=== PATIENT | female | born 1950 | race Caucasian/White ===

== ENCOUNTER 2020-02-08 23:55 | Inpatient (IN) | payer OTHER, MEDICAID ==
[~2020-02-08] VITALS: Ht 162.6 cm; Wt 82.3 kg
[2020-02-08 23:55] VITALS: BP 86/43
[2020-02-09] VITALS (13 sets, daily range): BP systolic 81–113; BP diastolic 47–75
[2020-02-09 00:12] LABS: BASO % 0.2 % (0.0-1.0); EOS # 0.3 10*3/uL (0.0-0.4); EOS % 3.2 % (1.0-4.0); HEMATOCRIT 28.8 % (37.0-47.0); LYMPH # 0.7 10*3/uL (1.3-4.4); LYMPH % 8.6 % (27.0-41.0); MEAN CELL VOLUME 102.1 fl (81.0-99.0); MEAN CORPUSCULAR HGB CONC 32.3 g/dl (33.0-37.0); MEAN PLATELET VOLUME 11.1 fl (9.6-12.3); MONO # 0.8 10*3/uL (0.1-1.0); MONO % 9.8 % (3.0-9.0); NEUT # 6.5 10*3/uL (2.3-7.9); NEUT % 77.7 % (47.0-73.0); PLATELET COUNT AUTOMATED 219 10*3/uL (130-400); RED BLOOD COUNT 2.82 10*6/uL (4.10-5.10); RED CELL DISTRI WIDTH 15.4 % (0-14.5); WHITE BLOOD COUNT 8.4 10*3/uL (4.8-10.8)
[2020-02-09 00:22] LABS: ACT PARTIAL THROMBO TIME 29.1 SECONDS (20.0-32.1); INTERNATIONAL NORM RATIO 1.1 (2.0-3.5)
[2020-02-09 00:30] LABS: ALBUMIN 3.3 gm/dl (3.1-4.5); ALKALINE PHOSPHATASE 169 U/L (45-117); BUN 66 mg/dl (7-24); CHLORIDE 89 mmol/L (98-107); CREATININE 1.38 mg/dL (0.55-1.02); POTASSIUM 3.9 mmol/L (3.5-5.1); SGOT/AST 44 IU/L (3-35); SGPT/ALT 70 U/L (12-78); SODIUM 130 mmol/L (136-145); TOTAL PROTEIN 8.6 gm/dL (6.4-8.2)
[2020-02-09 00:31] LABS: TROPONIN I < 0.015 ng/ml (<0.045)
[2020-02-09 00:59] LABS: THYROXINE (T4) TOTAL 2.2 ug/dl (4.8-13.9)
[2020-02-09] MEDS ORDERED: ATIVAN1 MG PEG (04:46)
[2020-02-09] MEDS ORDERED: TYLOPHEN500 M2 PO (04:46)
[2020-02-09] MEDS ORDERED: DULCOLAX10 M1 R (04:48)
[2020-02-09] MEDS ORDERED: PERIDEX118 ML MM (04:49)
[2020-02-09] MEDS ORDERED: SILACE50 MG/5 ML PEG (04:50)
[2020-02-09] MEDS ORDERED: ELIQUIS5 M1 PEG (04:51)
[2020-02-09] MEDS ORDERED: EUCERIN ECZEMA226 GM T (04:53)
[2020-02-09] MEDS ORDERED: MYLICON, MYLANT80 MG PEG (04:55)
[2020-02-09] MEDS ORDERED: NITROSTAT0.4 MG SL (04:57)
[2020-02-09] MEDS ORDERED: OMEPRAZOLE40 MG PEG (04:58)
[2020-02-09] MEDS ORDERED: OXYCODONE H5 MG/5 ML PEG (04:59)
[2020-02-09] MEDS ORDERED: PLAVIX75 M1 PEG (05:01)
[2020-02-09] MEDS ORDERED: BUDESONIDE1 MG/2 ML ENT (05:04)
[2020-02-09] MEDS ORDERED: ROBITUSSIN DM 101 OZ PO (05:05)
[2020-02-09] MEDS ORDERED: SENNA-S TABLET1 EACH PO (05:06)
[2020-02-09] MEDS ORDERED: REVATIO20 MG PO (05:07)
[2020-02-09] MEDS ORDERED: Synthroid,Levo50 MCG PEG (05:08)
[2020-02-09] MEDS ORDERED: TRAZODONE100 MG PEG (05:09)
[2020-02-09] MEDS ORDERED: ZOFRAN4 MG PEG (05:10)
[2020-02-09] MEDS ORDERED: FLEET ENEMA 13133 ML R (05:11)
[2020-02-09] MEDS ORDERED: Ipratropium Brom3 ML INH (05:12)
[2020-02-09] MEDS ORDERED: LASIX40 MG PEG (05:13)
[2020-02-09] MEDS ORDERED: LOPRESSOR100 M1 PEG (05:14)
[2020-02-09] MEDS ORDERED: MILK OF MA2400 MG/10 PEG (05:15)
[2020-02-09] MEDS ORDERED: MIRALAX17 GM PO (05:16)
[2020-02-09] MEDS ORDERED: PHENYTOIN PEG (05:19)
[2020-02-09 05:50] LABS: CREATININE 1.39 mg/dL (0.55-1.02); FREE T4 0.38 ng/dl (0.76-1.46)
[2020-02-09 06:02] LABS: BASO % 0.3 % (0.0-1.0); EOS # 0.2 10*3/uL (0.0-0.4); EOS % 2.8 % (1.0-4.0); HEMATOCRIT 29.6 % (37.0-47.0); LYMPH # 0.5 10*3/uL (1.3-4.4); LYMPH % 6.9 % (27.0-41.0); MEAN CORPUSCULAR HGB 32.4 pg (27.0-31.0); MEAN CORPUSCULAR HGB CONC 32.1 g/dl (33.0-37.0); MEAN PLATELET VOLUME 11.6 fl (9.6-12.3); MONO # 0.9 10*3/uL (0.1-1.0); MONO % 10.9 % (3.0-9.0); NEUT # 6.2 10*3/uL (2.3-7.9); NEUT % 78.7 % (47.0-73.0); PLATELET COUNT AUTOMATED 223 10*3/uL (130-400); RED BLOOD COUNT 2.93 10*6/uL (4.10-5.10); RED CELL DISTRI WIDTH 15.3 % (0-14.5); WHITE BLOOD COUNT 7.8 10*3/uL (4.8-10.8)
[2020-02-09 06:19] LABS: PHENYTOIN (DILANTIN) 35.1 ug/ml (10-20)
[2020-02-09 06:37] LABS: VITAMIN D, 25-HYDROXY 19.5 ng/mL (30-100)
[2020-02-09 07:49] LABS: ABG BASE EXCESS 8.8 mmol/L (-2.0-2.0); ARTERIAL BLOOD GAS PH 7.463 (7.35-7.45)
[2020-02-09 17:07] LABS: ABG BASE EXCESS 9.9 mmol/L (-2.0-2.0); ARTERIAL BLOOD GAS PH 7.462 (7.35-7.45)
[2020-02-10] VITALS: BP 98/71
[2020-02-10 04:00] VITALS: BP 112/50
[2020-02-10 05:12] LABS: ALBUMIN 3.4 gm/dl (3.1-4.5); CREATININE 1.25 mg/dL (0.55-1.02); POTASSIUM 3.9 mmol/L (3.5-5.1); TOTAL PROTEIN 8.6 gm/dL (6.4-8.2)
[2020-02-10 06:05] LABS: BASO % 0.1 % (0.0-1.0); EOS # 0.2 10*3/uL (0.0-0.4); EOS % 2.5 % (1.0-4.0); HEMATOCRIT 28.5 % (37.0-47.0); LYMPH # 0.6 10*3/uL (1.3-4.4); LYMPH % 6.7 % (27.0-41.0); MEAN CELL VOLUME 100.7 fl (81.0-99.0); MEAN CORPUSCULAR HGB 33.6 pg (27.0-31.0); MEAN CORPUSCULAR HGB CONC 33.3 g/dl (33.0-37.0); MONO # 0.8 10*3/uL (0.1-1.0); NEUT # 6.8 10*3/uL (2.3-7.9); NEUT % 81.3 % (47.0-73.0); PLATELET COUNT AUTOMATED 240 10*3/uL (130-400); RED BLOOD COUNT 2.83 10*6/uL (4.10-5.10); RED CELL DISTRI WIDTH 15.3 % (0-14.5); WHITE BLOOD COUNT 8.4 10*3/uL (4.8-10.8)
[2020-02-10 07:34] LABS: ARTERIAL BLOOD GAS PH 7.446 (7.35-7.45)
[2020-02-10 08:00] VITALS: BP 102/60
[2020-02-10 12:00] VITALS: BP 92/60
[2020-02-10 16:00] VITALS: BP 100/66
[2020-02-10 20:00] VITALS: BP 104/74
[2020-02-11] VITALS: BP 102/68
[2020-02-11 04:00] VITALS: BP 96/62
[2020-02-11 06:25] LABS: BASO % 0.3 % (0.0-1.0); EOS # 0.2 10*3/uL (0.0-0.4); HEMATOCRIT 32.6 % (37.0-47.0); LYMPH # 0.7 10*3/uL (1.3-4.4); LYMPH % 10.9 % (27.0-41.0); MEAN CELL VOLUME 100.3 fl (81.0-99.0); MEAN CORPUSCULAR HGB 32.6 pg (27.0-31.0); MEAN CORPUSCULAR HGB CONC 32.5 g/dl (33.0-37.0); MONO # 0.4 10*3/uL (0.1-1.0); MONO % 6.9 % (3.0-9.0); NEUT # 4.9 10*3/uL (2.3-7.9); NEUT % 78.4 % (47.0-73.0); PLATELET COUNT AUTOMATED 256 10*3/uL (130-400); RED BLOOD COUNT 3.25 10*6/uL (4.10-5.10); RED CELL DISTRI WIDTH 15.5 % (0-14.5); WHITE BLOOD COUNT 6.2 10*3/uL (4.8-10.8)
[2020-02-11 06:33] LABS: CREATININE 1.28 mg/dL (0.55-1.02)
[2020-02-11 06:48] LABS: PHENYTOIN (DILANTIN) 24.9 ug/ml (10-20)
[2020-02-11 08:00] VITALS: BP 108/72
[2020-02-11 12:00] VITALS: BP 96/65
[2020-02-11 16:00] VITALS: BP 91/57
[2020-02-11 20:00] VITALS: BP 100/55
[2020-02-12] VITALS: BP 109/52
[2020-02-12 04:00] VITALS: BP 106/72
[2020-02-12 06:14] LABS: BASO % 0.2 % (0.0-1.0); EOS # 0.2 10*3/uL (0.0-0.4); EOS % 2.2 % (1.0-4.0); LYMPH # 0.6 10*3/uL (1.3-4.4); MEAN CORPUSCULAR HGB 33.5 pg (27.0-31.0); MEAN CORPUSCULAR HGB CONC 32.1 g/dl (33.0-37.0); MEAN PLATELET VOLUME 11.4 fl (9.6-12.3); MONO # 0.8 10*3/uL (0.1-1.0); MONO % 9.1 % (3.0-9.0); NEUT # 6.8 10*3/uL (2.3-7.9); NEUT % 81.1 % (47.0-73.0); PLATELET COUNT AUTOMATED 252 10*3/uL (130-400); RED BLOOD COUNT 2.69 10*6/uL (4.10-5.10); WHITE BLOOD COUNT 8.3 10*3/uL (4.8-10.8)
[2020-02-12 06:21] LABS: MEAN CELL VOLUME 104.1 fl (81.0-99.0)
[2020-02-12 06:28] LABS: ALBUMIN 3.1 gm/dl (3.1-4.5)
[2020-02-12 06:35] LABS: CREATININE 1.33 mg/dL (0.55-1.02); PHENYTOIN (DILANTIN) 12.7 ug/ml (10-20); TOTAL PROTEIN 8.1 gm/dL (6.4-8.2)
[2020-02-12 06:36] LABS: POTASSIUM 4.3 mmol/L (3.5-5.1)
[2020-02-12 08:00] VITALS: BP 107/39
[2020-02-12 12:00] VITALS: BP 95/68
[2020-02-12 15:49] LABS: ABG BASE EXCESS 6.5 mmol/L (-2.0-2.0); ARTERIAL BLOOD GAS PH 7.468 (7.35-7.45)
[2020-02-12 16:00] VITALS: BP 104/76
[2020-02-12 19:08] LABS: ABG BASE EXCESS 5.3 mmol/L (-2.0-2.0); ARTERIAL BLOOD GAS PH 7.401 (7.35-7.45)
[2020-02-12 20:00] VITALS: BP 107/68
[2020-02-13] VITALS (8 sets, daily range): BP systolic 101–116; BP diastolic 47–73
[2020-02-13 06:04] LABS: BASO % 0.1 % (0.0-1.0); EOS # 0.2 10*3/uL (0.0-0.4); EOS % 1.2 % (1.0-4.0); HEMATOCRIT 28.4 % (37.0-47.0); LYMPH # 0.5 10*3/uL (1.3-4.4); LYMPH % 3.3 % (27.0-41.0); MEAN CELL VOLUME 103.3 fl (81.0-99.0); MEAN CORPUSCULAR HGB 33.1 pg (27.0-31.0); MEAN PLATELET VOLUME 10.9 fl (9.6-12.3); NEUT # 12.1 10*3/uL (2.3-7.9); PLATELET COUNT AUTOMATED 242 10*3/uL (130-400); RED BLOOD COUNT 2.75 10*6/uL (4.10-5.10); RED CELL DISTRI WIDTH 15.6 % (0-14.5); WHITE BLOOD COUNT 13.7 10*3/uL (4.8-10.8)
[2020-02-13 06:11] LABS: ALBUMIN 3.2 gm/dl (3.1-4.5); CREATININE 1.2 mg/dL (0.55-1.02); POTASSIUM 3.8 mmol/L (3.5-5.1); TOTAL PROTEIN 8.2 gm/dL (6.4-8.2)
[2020-02-13 13:10] LABS: ACID FAST SPEC PROCESSING Concentration (.)
[2020-02-14] VITALS (10 sets, daily range): BP systolic 108–120; BP diastolic 65–77
[2020-02-14 06:29] LABS: BASO % 0.4 % (0.0-1.0); EOS # 0.2 10*3/uL (0.0-0.4); EOS % 2.2 % (1.0-4.0); LYMPH # 0.6 10*3/uL (1.3-4.4); LYMPH % 5.7 % (27.0-41.0); MEAN CELL VOLUME 104.5 fl (81.0-99.0); MEAN CORPUSCULAR HGB 32.4 pg (27.0-31.0); MEAN PLATELET VOLUME 10.9 fl (9.6-12.3); MONO # 0.6 10*3/uL (0.1-1.0); MONO % 6.1 % (3.0-9.0); NEUT # 8.4 10*3/uL (2.3-7.9); NEUT % 85.1 % (47.0-73.0); PLATELET COUNT AUTOMATED 274 10*3/uL (130-400); RED BLOOD COUNT 2.87 10*6/uL (4.10-5.10); RED CELL DISTRI WIDTH 15.9 % (0-14.5); WHITE BLOOD COUNT 9.9 10*3/uL (4.8-10.8)
[2020-02-14 06:55] LABS: ALBUMIN 3.3 gm/dl (3.1-4.5); CREATININE 1.16 mg/dL (0.55-1.02); POTASSIUM 3.7 mmol/L (3.5-5.1); TOTAL PROTEIN 8.3 gm/dL (6.4-8.2)
[2020-02-15] VITALS: BP 109/62
[2020-02-15 04:00] VITALS: BP 106/64
[2020-02-15 08:00] VITALS: BP 124/92
[2020-02-15 12:00] VITALS: BP 113/84
[2020-02-15 16:00] VITALS: BP 113/78
[2020-02-15 20:00] VITALS: BP 117/70
[2020-02-16] VITALS: BP 104/53
[2020-02-16 04:00] VITALS: BP 110/72
[2020-02-16 06:23] LABS: PHENYTOIN (DILANTIN) 2.9 ug/ml (10-20)
[2020-02-16 06:34] LABS: THYROID STIM HORMONE (HS) 99.8 uIU/ml (0.358-4.75)
[2020-02-16 08:00] VITALS: BP 111/70
[2020-02-16 12:00] VITALS: BP 126/72
[2020-02-16] MEDS ORDERED: QUETIAPINE FUMA25 MG PO ×2 (13:32)
[2020-02-16] MEDS ORDERED: SYNTHROID,LEV125 MCG PO (13:32)
[2020-02-16] MEDS ORDERED: Lanoxin PEG (13:32)
[2020-02-16] MEDS ORDERED: LEVAQUIN750 M1 PO (13:50)
[2020-02-16 16:00] VITALS: BP 120/60
== END 2020-02-16 17:18 | DRG 870 ==
LOC: ED 23:55 → ICCU 02-09 01:17 → EDHOLD 02-09 01:17 → 4E 02-09 02:18 → ICCU 02-09 04:07
PROVIDERS: Emergency Medicine; Internal Medicine; Internal Medicine Critical Care Medicine; ADMIT Family Medicine
PROC: 5A1955Z Respiratory Ventilation, Greater than 96 Consecutive Hours (ICD-10-PCS; 2020-02-09)
PROC: 05HC33Z Insertion of Infusion Device into Left Basilic Vein, Percutaneous Approach (ICD-10-PCS; 2020-02-09)
PROC: 0BC68ZZ Extirpation of Matter from Right Lower Lobe Bronchus, Via Natural or Artificial Opening Endoscopic (ICD-10-PCS; principal; 2020-02-12)
PROC: 0BC18ZZ Extirpation of Matter from Trachea, Via Natural or Artificial Opening Endoscopic (ICD-10-PCS; principal; 2020-02-12)
PROC: 0BC88ZZ Extirpation of Matter from Left Upper Lobe Bronchus, Via Natural or Artificial Opening Endoscopic (ICD-10-PCS; principal; 2020-02-12)
PROC: 0BC48ZZ Extirpation of Matter from Right Upper Lobe Bronchus, Via Natural or Artificial Opening Endoscopic (ICD-10-PCS; principal; 2020-02-12)
PROC: 0BC58ZZ Extirpation of Matter from Right Middle Lobe Bronchus, Via Natural or Artificial Opening Endoscopic (ICD-10-PCS; principal; 2020-02-12)
PROC: 0BC38ZZ Extirpation of Matter from Right Main Bronchus, Via Natural or Artificial Opening Endoscopic (ICD-10-PCS; principal; 2020-02-12)
PROC: 0BC98ZZ Extirpation of Matter from Lingula Bronchus, Via Natural or Artificial Opening Endoscopic (ICD-10-PCS; principal; 2020-02-12)
PROC: 0BC78ZZ Extirpation of Matter from Left Main Bronchus, Via Natural or Artificial Opening Endoscopic (ICD-10-PCS; principal; 2020-02-12)
PROC: 0BCB8ZZ Extirpation of Matter from Left Lower Lobe Bronchus, Via Natural or Artificial Opening Endoscopic (ICD-10-PCS; principal; 2020-02-12)
DX: A41.9 Sepsis, unspecified organism (principal); J96.22 Acute and chronic respiratory failure with hypercapnia; J96.21 Acute and chronic respiratory failure with hypoxia; J15.1 Pneumonia due to Pseudomonas; E87.1 Hypo-osmolality and hyponatremia; I13.0 Hypertensive heart and chronic kidney disease with heart failure and stage 1 through stage 4 chronic kidney disease, or unspecified chronic kidney disease; I48.92 Unspecified atrial flutter; J44.0 Chronic obstructive pulmonary disease with (acute) lower respiratory infection; E44.1 Mild protein-calorie malnutrition; Z99.11 Dependence on respirator [ventilator] status; I42.0 Dilated cardiomyopathy; I50.42 Chronic combined systolic (congestive) and diastolic (congestive) heart failure; E03.9 Hypothyroidism, unspecified; R94.31 Abnormal electrocardiogram [ECG] [EKG]; D53.9 Nutritional anemia, unspecified; E87.8 Other disorders of electrolyte and fluid balance, not elsewhere classified; E83.41 Hypermagnesemia; R74.0 Nonspecific elevation of levels of transaminase and lactic acid dehydrogenase [LDH]; R74.8 Abnormal levels of other serum enzymes; R79.89 Other specified abnormal findings of blood chemistry; E66.9 Obesity, unspecified; N18.3 Chronic kidney disease, stage 3 (moderate); I25.10 Atherosclerotic heart disease of native coronary artery without angina pectoris; D50.9 Iron deficiency anemia, unspecified; F32.9 Major depressive disorder, single episode, unspecified; G43.709 Chronic migraine without aura, not intractable, without status migrainosus; K21.9 Gastro-esophageal reflux disease without esophagitis; M34.1 CR(E)ST syndrome; F41.1 Generalized anxiety disorder; K59.00 Constipation, unspecified; R13.12 Dysphagia, oropharyngeal phase; M48.00 Spinal stenosis, site unspecified; M34.9 Systemic sclerosis, unspecified; J20.9 Acute bronchitis, unspecified; M79.7 Fibromyalgia; I34.0 Nonrheumatic mitral (valve) insufficiency; R07.89 Other chest pain; Z20.828 Contact with and (suspected) exposure to other viral communicable diseases; I48.0 Paroxysmal atrial fibrillation; Z93.0 Tracheostomy status; Z93.1 Gastrostomy status; Z88.8 Allergy status to other drugs, medicaments and biological substances; Z88.5 Allergy status to narcotic agent; Z86.711 Personal history of pulmonary embolism; Z86.14 Personal history of Methicillin resistant Staphylococcus aureus infection; Z79.899 Other long term (current) drug therapy; Z79.02 Long term (current) use of antithrombotics/antiplatelets; Z79.01 Long term (current) use of anticoagulants; Z68.31 Body mass index [BMI] 31.0-31.9, adult

== ENCOUNTER 2020-03-01 22:31 | Inpatient (IN) | payer OTHER, MEDICAID ==
[~2020-03-01] VITALS: Ht 162.6 cm; Wt 75.4 kg
[~2020-03-01 22:31] MED LIST: ATIVAN1 MG PEG; BUDESONIDE1 MG/2 ML ENT; DULCOLAX10 M1 R; ELIQUIS5 M1 PEG; EUCERIN ECZEMA226 GM T; FLEET ENEMA 13133 ML R; Ipratropium Brom3 ML INH; LASIX40 MG PEG; LEVAQUIN750 M1 PO; LOPRESSOR100 M1 PEG; Lanoxin PEG; MILK OF MA2400 MG/10 PEG; MIRALAX17 GM PO; MYLICON, MYLANT80 MG PEG; NITROSTAT0.4 MG SL; OMEPRAZOLE40 MG PEG; OXYCODONE H5 MG/5 ML PEG; PERIDEX118 ML MM; PHENYTOIN PEG; PLAVIX75 M1 PEG; QUETIAPINE FUMA25 MG PO; REVATIO20 MG PO; ROBITUSSIN DM 101 OZ PO; SENNA-S TABLET1 EACH PO; SILACE50 MG/5 ML PEG; SYNTHROID,LEV125 MCG PO; Synthroid,Levo50 MCG PEG; TRAZODONE100 MG PEG; TYLOPHEN500 M2 PO; ZOFRAN4 MG PEG
--- NOTE | 2020-03-01 22:35 | NUR ---
Pt placed on ventilator at [facility] settings. [id number]%-10+ Pt has a 6.0 Shiley XLT. Suctioning bright red bloody secretions out of her. SpO2 89%-92%. Pressure support of 15.
[2020-03-01 22:36] VITALS: BP 96/53
--- NOTE | 2020-03-01 22:37 | NUR ---
RESP AT BEDSIDE AT THIS TIME HOOKING PATIENT UP TO VENT AT THIS TIME. SPO2 90% AT THIS TIME.
--- NOTE | 2020-03-01 23:10 | NUR ---
MULTIPLE TRIES FOR IV ACCESS, NO SUCCESS. DR HOYOS NOTIFIED OF THIS. DR HOYOS STATES SHE DOES NOT WANT TO START CENTRAL LINE AT THIS TIME DUE TO BLEEDING SO MUCH FROM ACCESS SITES.
[2020-03-01 23:14] VITALS: BP 99/54
[2020-03-01 23:27] LABS: BASO % 0.2 % (0.0-1.0); EOS # 0.1 10*3/uL (0.0-0.4); EOS % 0.7 % (1.0-4.0); HEMATOCRIT 31.9 % (37.0-47.0); LYMPH # 0.3 10*3/uL (1.3-4.4); LYMPH % 2.2 % (27.0-41.0); MEAN CELL VOLUME 100.6 fl (81.0-99.0); MEAN CORPUSCULAR HGB 32.8 pg (27.0-31.0); MEAN CORPUSCULAR HGB CONC 32.6 g/dl (33.0-37.0); MEAN PLATELET VOLUME 11.3 fl (9.6-12.3); MONO # 0.9 10*3/uL (0.1-1.0); NEUT # 11.1 10*3/uL (2.3-7.9); NEUT % 89.4 % (47.0-73.0); PLATELET COUNT AUTOMATED 238 10*3/uL (130-400); RED BLOOD COUNT 3.17 10*6/uL (4.10-5.10); RED CELL DISTRI WIDTH 14.6 % (0-14.5); WHITE BLOOD COUNT 12.4 10*3/uL (4.8-10.8)
[2020-03-01 23:44] LABS: ALBUMIN 3.5 gm/dl (3.1-4.5); ALKALINE PHOSPHATASE 179 U/L (45-117); BUN 41 mg/dl (7-24); CHLORIDE 93 mmol/L (98-107); CREATININE 1.02 mg/dL (0.55-1.02); POTASSIUM 3.9 mmol/L (3.5-5.1); SGOT/AST 54 IU/L (3-35); SGPT/ALT 67 U/L (12-78); SODIUM 131 mmol/L (136-145)
[2020-03-01 23:46] LABS: TROPONIN I < 0.015 ng/ml (<0.045)
[2020-03-01 23:55] VITALS: BP 100/71
[2020-03-02] VITALS (12 sets, daily range): BP systolic 79–140; BP diastolic 44–79
--- NOTE | 2020-03-02 01:19 | NUR ---
RASH NOTED TO THE BUTTOCK BLANCHABLE. NO PHOTO TAKEN.
--- NOTE | 2020-03-02 01:35 | NUR ---
A 70, admitted to ICCU, under the services of ALIS Rascon DO with a diagnosis of RESP FAILURE, HYPOXIA, PNEUMONIA. Chief complaint is SOB. Patient arrived via stretcher from ER. Monitor applied. Initial assessment completed. Vital signs taken and recorded. ALIS RASCON DO notified of admission to the unit. Orders received. See assessment for past medical history, medications and allergies. Patient and/or family oriented to unit. [facility] ICCU visitation policy reviewed. Clothing/patient valuable form completed. ANOOP SERRANO
[2020-03-02 01:53] LABS: ABG BASE EXCESS 5.5 mmol/L (-2.0-2.0); ARTERIAL BLOOD GAS PH 7.374 (7.35-7.45)
--- NOTE | 2020-03-02 03:30 | NUR ---
DR CASTILLO NOTIFIED OF CONSULT AND ABG RESULTS.
--- NOTE | 2020-03-02 03:40 | NUR ---
DR RAMÍREZ NOTIFIED OF CONSULT AND NEW ORDER FOR AMIODARONE BOLUS AND GTT RECEIVED.
--- NOTE | 2020-03-02 04:00 | NUR ---
Pt lavaged and suctioned with ice bathed saline. Suction moderate amount of bright red blood and clots. Tolerated well. Decreased FiO2 from 100% to 80%.
--- NOTE | 2020-03-02 04:00 | NUR ---
Pt switched from decelerating form to square wave form per Dr.Aziz clayton. Peak pressures increased from 23 to 49.
--- NOTE | 2020-03-02 04:31 | NUR ---
PT VERY DIAPHORETIC AND PALE, NOT RESPONDING. RAPID RESPONSE CALLED.
--- NOTE | 2020-03-02 04:50 | NUR ---
AMIODARONE GTT STOPPED. PT PLACED ON 100% ON VENT. BY THE TIME EVERYONE RESPONDED TO RAPID RESPONSE PT STARTED TO AROUSE. DR RAMÍREZ NOTIFIED AND ORDER TO STOP AMIODARONE GTT. NEW ORDER FOR ESMOLOL GTT. TO GIVE 20MG BOLUS AND THEN START GTT AT 50MCG AND CAN TITRATE UP TO 200MICS.
[2020-03-02 05:27] LABS: ALBUMIN 3.1 gm/dl (3.1-4.5); CREATININE 1.15 mg/dL (0.55-1.02); POTASSIUM 4.6 mmol/L (3.5-5.1); TOTAL PROTEIN 8.3 gm/dL (6.4-8.2)
[2020-03-02 05:28] LABS: FREE T4 0.55 ng/dl (0.76-1.46)
--- NOTE | 2020-03-02 05:30 | NUR ---
PHARMACY UNABLE TO GIVE DIRECTIONS ON MIXING ESMOLOL GTT. DR RAMÍREZ CALLED AND NOTIFIED AND SAID TO GIVE DIG 250MCG NOW UNTIL PHARMACY CAN FIGURE IT OUT. PT MORE ALERT AND STATES SHE IS FEELING BETTER.
[2020-03-02 05:34] LABS: THYROID STIM HORMONE (HS) 50.8 uIU/ml (0.358-4.75)
[2020-03-02 06:12] LABS: HEMATOCRIT 31.2 % (37.0-47.0); MEAN CELL VOLUME 101.3 fl (81.0-99.0); MEAN CORPUSCULAR HGB 32.8 pg (27.0-31.0); MEAN CORPUSCULAR HGB CONC 32.4 g/dl (33.0-37.0); MEAN PLATELET VOLUME 11.4 fl (9.6-12.3); PLATELET COUNT AUTOMATED 244 10*3/uL (130-400); RED BLOOD COUNT 3.08 10*6/uL (4.10-5.10); RED CELL DISTRI WIDTH 14.7 % (0-14.5); WHITE BLOOD COUNT 16.9 10*3/uL (4.8-10.8)
[2020-03-02 07:02] LABS: PLATELET SUFFICIENCY NORMAL (NORMAL); POLYCHROMASIA SLIGHT; TOTAL CELLS COUNTED 100 #CELLS; TOXIC GRANULATION SLIGHT
--- NOTE | 2020-03-02 07:40 | NUR ---
BLOOD PRESSURE 60/40 WITH REPEAT 79/53. SKIN WARM AND DRY. ALERT AND ORIENTED TIMES THREE. HEART RATE FLUCTUATING FROM 117-159 A-FIB. PULSE OX 98% ON VENT SETTING OF TV 400, IMV 18, FIO2 80% AND PEEP 10. SCATTERED RHONCHI HEARD IN LUNG LEGGETT. SUCTIONED TRACH FOR MODERATE AMOUNT BLOODY SECRETIONS. CHANG DRAINING CLEAR YELLOW URINE. NO EDEMA NOTED.
[2020-03-02 07:59] LABS: ABG BASE EXCESS 5.5 mmol/L (-2.0-2.0); ARTERIAL BLOOD GAS PH 7.405 (7.35-7.45)
--- NOTE | 2020-03-02 08:00 | NUR ---
Nursing screen received and chart reviewed. Patient admitted from LTC at [facility] for severe sepsis, PNA, respiratory failure. If patient has a decline in ADLs, transfers, or functional mobility past baseline, please send OT orders when appropriate. Thank you. Ratna Santiago, OTR/L
--- NOTE | 2020-03-02 08:27 | NUR ---
LEVOPHED GTT STARTED AT 4 KELLY'S
--- NOTE | 2020-03-02 08:58 | NUR ---
PHYSICAL THERAPY Screen received pt admitted from [facility] with pneumonia respiratory failure, please consult PT if pt has a decline in functional status thank you Amirah Tran PT
--- NOTE | 2020-03-02 10:30 | NUR ---
DR. CASTILLO HERE TO DO BEDSIDE BRONCH. MEDICATED WITH VERSED 5MG IV
--- NOTE | 2020-03-02 10:35 | NUR ---
DR. MARTINEZ HERE TO SEE PATIENT. AMIODARONE GTT STARTED AT 1MG/MIN VIA LIJ MULTILUMEN CATHETER. HEART RATE 110-150'S A-FIB.
--- NOTE | 2020-03-02 10:43 | NUR ---
Faxed palliative care order to [facility] along with eric and H[facility]P. Notified [facility] nurse.
--- NOTE | 2020-03-02 10:52 | NUR ---
Nutrition Support Note: Pt on tube feed order of TwoCal at 45cc/hr. This provides 2160kcal and 80g protein and 972cc water. Pt needs are estimated at 1800kcal and 75g protein. Fluid needs estimated at 1800cc. Recommend decreasing tube feed to 40cc/hr to provide 1920kcal and 80g protein and 864cc water. Recommend 930cc water be provided through flushes. Monitor pt tube feed tolerance. Will follow. Meseret Teague [facility] Plug Paster
--- NOTE | 2020-03-02 11:00 | NUR ---
DR. DE LA GARZA HERE TO SEE PATIENT
--- NOTE | 2020-03-02 11:20 | NUR ---
ART LINE PLACED IN LEFT RADIAL BY SHOAIB BLANCA. ART LINE ZEROED AND BP 120'S SYSTOLIC. LEVOPHED GTT TITRATED DOWN TO 5 KELLY'S.
--- NOTE | 2020-03-02 11:31 | NUR ---
Patient comes in from [facility]. Patient will need Covid test prior to return.
--- NOTE | 2020-03-02 11:42 | NUR ---
PALLIATIVE CARE NOTIFIED OF CONSULT
[2020-03-02 12:22] LABS: ABG BASE EXCESS 4.2 mmol/L (-2.0-2.0); ARTERIAL BLOOD GAS PH 7.38 (7.35-7.45)
--- NOTE | 2020-03-02 12:42 | NUR ---
O2 DECREASED TO 60%. RN AWARE.
--- NOTE | 2020-03-02 14:59 | NUR ---
SPEECH PATHOLOGY Clinical swallowing evaluation completed as per orders due to risk of aspiration. Patient is known to this dept. as she was recently seen upon admission a couple weeks ago with pneumonia. She was readmitted with respiratory failure, hypoxia and pneumonia. Further history includes permanent trach/vent dependency, seizures, GERD, HTN, anxiety/depression. Patient is NPO and fed by PEG tube. She wears a 6.0 Shiley cuffed trach tube. Cuff remains inflated. She has been requiring frequent suctioning significant for bright, red, bloody secretions. For assessment patient was very alert and able to follow all commands. She responded to questions by mouthing words and using gestures. Upon clinician's entrance, patient immediately asked for something to drink. Nursing reports patient is frequently asking for liquids. Patient stated that at the [facility], she was being given mashed potatoes. Oral exam revealed presence of natural teeth on top only. Lingual/labial and buccal skills were WNL in terms of strength, ROM and coordination. Volitional swallow was delayed and reduced in elevation. Volitional cough was significantly weak. Patient was given ice chips to assess swallowing abilities. She continually asked for more but it was explained that she was only permitted a few at this time due to aspiration risk and medical status. She verbalized understanding. Patient swallowed in a timely manner. Reduced laryngeal elevation was displayed. No cough was elicited. Patient would benefit from an instrumental assessment to ensure safe tolerance but current x-ray suite at this facility does not support the ventilator/oxygen needs of the patient in order to complete MBS study. Recommend patient remain NPO. Patient is permitted small amounts of ice chips for comfort. Follow up therapy will be conducted to improve swallowing abilities. Once patient's secretions clear from bloody red, will proceed with blue dye assessment in order to detect possible aspiration. Patient's nurse was informed of results and kayy. and verbalized understanding. Refer to report in [facility] for further info. Thank you for this referral. WALTER FREY MSCCC-UNIX CONSULTANT
--- NOTE | 2020-03-02 16:10 | NUR ---
MEDICATED WITH 2 TYLENOL FOR COMPLAINTS OF HIP AND BACK PAIN. RATES PAIN A 8 ON A PAIN SCALE OF 1-10
--- NOTE | 2020-03-02 17:00 | NUR ---
VOICES THAT TYLENOL WAS EFFECTIVE
--- NOTE | 2020-03-02 17:20 | NUR ---
MEDICATED WITH ATIVAN 1MG VIA PEG TUBE FOR ANXIETY AND RESTLESSNESS
--- NOTE | 2020-03-02 20:01 | NUR ---
Patient complains of back pain, but refused to turn on side. Tylenol given. Will monitor and reassess.
--- NOTE | 2020-03-02 20:49 | NUR ---
Levophed titrated off, patients bp 102/52 map 72. Patient stable.
[2020-03-03 00:01] VITALS: BP 110/55
--- NOTE | 2020-03-03 00:20 | NUR ---
Patient complains of back pain, but again refuses to turn on side. Tylenol given. Will monitor and reassess.
--- NOTE | 2020-03-03 01:00 | NUR ---
Patient still complains of pain, refuses to turn. Tylenol not effective.
[2020-03-03 04:05] VITALS: BP 117/60
--- NOTE | 2020-03-03 04:35 | NUR ---
Patient still complains of back/tailbone pain, refused to move side to side. Notified Dr. Boudreaux, new order received for one time dose of morphine 1mg. Was given. Will monitor effects.
[2020-03-03 05:05] LABS: ALBUMIN 2.7 gm/dl (3.1-4.5); CREATININE 1.14 mg/dL (0.55-1.02); POTASSIUM 4.1 mmol/L (3.5-5.1); TOTAL PROTEIN 7.5 gm/dL (6.4-8.2)
--- NOTE | 2020-03-03 06:02 | NUR ---
Morphine effective for pain, no distress noted.
[2020-03-03 06:09] LABS: HEMATOCRIT 24.5 % (37.0-47.0); MEAN CELL VOLUME 100.4 fl (81.0-99.0); MEAN CORPUSCULAR HGB 33.2 pg (27.0-31.0); MEAN CORPUSCULAR HGB CONC 33.1 g/dl (33.0-37.0); MEAN PLATELET VOLUME 11.6 fl (9.6-12.3); PLATELET COUNT AUTOMATED 179 10*3/uL (130-400); RED BLOOD COUNT 2.44 10*6/uL (4.10-5.10); RED CELL DISTRI WIDTH 14.7 % (0-14.5); WHITE BLOOD COUNT 16.4 10*3/uL (4.8-10.8)
[2020-03-03 06:36] LABS: PLATELET SUFFICIENCY NORMAL (NORMAL); POLYCHROMASIA SLIGHT; TOTAL CELLS COUNTED 100 #CELLS; TOXIC GRANULATION SLIGHT
--- NOTE | 2020-03-03 06:39 | NUR ---
Patient putting her call light on multiple times to say she is in pain. I asked her to move off her back and she refuses. I explained she just had morphine and will not be able to have anything at this time.
[2020-03-03 08:00] VITALS: BP 125/64
--- NOTE | 2020-03-03 08:22 | NUR ---
Updated clinicals faxed to Cierra at [facility] for review. Patient is [facility] resident and ok to return when medically stable for discharge.
--- NOTE | 2020-03-03 09:00 | NUR ---
Nursery Teacher in to see patient. She is a LTC resident at [facility]. emergency planner/social work faculty member following for return to [facility].
--- NOTE | 2020-03-03 10:08 | NUR ---
I NOTIFIED DR RICO OF CRITICAL DIG LEVEL OF 2.9
[2020-03-03 10:09] LABS: ACID FAST SPEC PROCESSING Concentration (.)
--- NOTE | 2020-03-03 10:55 | NUR ---
DARREN FROM PALLIATIVE CARE IN TO SPEAK WITH PT.
--- NOTE | 2020-03-03 11:16 | NUR ---
PT CONTINUE TO REFUSE TO REPOSITION OFF HER BUTTOCKS FOR ANY SIGNIFICANT AMOUNT OF TIME. I EDUCATED PT ON IMPORTANCE OF TURNING AND POSITIONING AND ALSO WHEN DR COMBS WAS IN SHE ALSO EDUCATED THAT PT ON IMPORTANCE OF THIS.
[2020-03-03 11:41] VITALS: BP 109/61
--- NOTE | 2020-03-03 11:53 | NUR ---
LEFT BRACHIAL ART LINE REMOVED PER POLICY. PT TOLERATED WELL.
--- NOTE | 2020-03-03 14:35 | NUR ---
SPEECH PATHOLOGY Patient was seen for treatment this pm. Patient was alert and pleasant and immediately asked for something to drink. Purpose for today's visit was explained including strengthening exercises and small amounts of ice chips due to aspiration risk. Patient reportedly continues to display excessive, blood tinged secretions. Clinician provided a small amount of ice chips by spoon. Patient swallowed with reduced laryngeal elevation. No cough or wet vocal quality were displayed post swallow. Pharyngeal exercises were performed. Due to weakness she had difficulty performing exercises but gave good effort. Recommend continued NPO with small amounts of ice chips for comfort. Continue plan. WALTER FREY MSCCC-GOLF TECHNICIAN
[2020-03-03 14:59] LABS: ABG BASE EXCESS 2.8 mmol/L (-2.0-2.0); ARTERIAL BLOOD GAS PH 7.405 (7.35-7.45)
--- NOTE | 2020-03-03 15:01 | NUR ---
PT MEDICATED WITH TYLENOL 650MG VIA PEG FOR C/O BACK PAIN. PT CONTINUES TO REFUSE REPOSITIONING MOST OF THE TIME AND YELLED "NO"!! WHEN THE NURSE TRIED TO PERSUADE HER TO PUT A PILLOW BEHIND HER BACK TO REPOSITION.
[2020-03-03 16:00] VITALS: BP 110/50
[2020-03-03 20:00] VITALS: BP 106/58
[2020-03-04] VITALS: BP 116/53
--- NOTE | 2020-03-04 03:18 | NUR ---
MEDICATED WITH TYLENOL PER PRN ORDER FOR C/O PAIN.
[2020-03-04 04:00] VITALS: BP 111/53
[2020-03-04 06:07] LABS: BUN 28 mg/dl (7-24); CHLORIDE 102 mmol/L (98-107); POTASSIUM 3.6 mmol/L (3.5-5.1); SODIUM 136 mmol/L (136-145)
[2020-03-04 06:44] LABS: BASO % 0.2 % (0.0-1.0); EOS # 0.3 10*3/uL (0.0-0.4); EOS % 2.2 % (1.0-4.0); HEMATOCRIT 22.9 % (37.0-47.0); LYMPH # 0.3 10*3/uL (1.3-4.4); MEAN CELL VOLUME 102.2 fl (81.0-99.0); MEAN CORPUSCULAR HGB CONC 32.3 g/dl (33.0-37.0); MEAN PLATELET VOLUME 11.6 fl (9.6-12.3); MONO % 6.5 % (3.0-9.0); NEUT # 13.8 10*3/uL (2.3-7.9); NEUT % 87.5 % (47.0-73.0); PLATELET COUNT AUTOMATED 204 10*3/uL (130-400); RED BLOOD COUNT 2.24 10*6/uL (4.10-5.10); RED CELL DISTRI WIDTH 14.8 % (0-14.5); WHITE BLOOD COUNT 15.8 10*3/uL (4.8-10.8)
[2020-03-04 07:57] LABS: ABG BASE EXCESS 3.8 mmol/L (-2.0-2.0); ARTERIAL BLOOD GAS PH 7.401 (7.35-7.45)
[2020-03-04 08:00] VITALS: BP 108/59
--- NOTE | 2020-03-04 08:30 | NUR ---
Spent Grain Dryer in to see patient. She is a LTC resident at [facility]. planner/social sciences research scientist following for return to [facility].
[2020-03-04 11:59] LABS: ABG BASE EXCESS 4.2 mmol/L (-2.0-2.0); ARTERIAL BLOOD GAS PH 7.421 (7.35-7.45)
[2020-03-04 12:00] VITALS: BP 111/58
--- NOTE | 2020-03-04 12:15 | NUR ---
SPOKE WITH MAY HENSLEY FROM DR CASTILLO'S OFFICE. DR. CASTILLO IS CURRENTLY IN A MEETING AND HE WILL CALL ME BACK WHEN HE IS DONE.
--- NOTE | 2020-03-04 12:58 | NUR ---
SPEECH PATHOLOGY Treatment attempted this pm. Patient was resting in bed upon clinician arrival. When clinician explained purpose for this afternoon's visit, patient politely declined and mouthed that she did not feel up to it at this time. Patient's nurse was informed and verbalized understanding. Will continue treatment at a later time. WALTER [facility]-ROAD ROLLER OPERATOR HOT MIX
--- NOTE | 2020-03-04 14:20 | NUR ---
CHANG REMOVED AT THIS TIME. PATIENT TOLERATED WELL, CALL LIGHT WITHIN REACH.
--- NOTE | 2020-03-04 14:30 | NUR ---
SPOKE WITH DR. CASTILLO. ABG RESULTS REVIEWED. NO FURTHER ORDERS AT THIS TIME.
[2020-03-04 16:00] VITALS: BP 109/50
--- NOTE | 2020-03-04 19:09 | NUR ---
REPORT RECEIVED, CHART CHECKED, AND BARREL DEDENTING MACHINE OPERATOR STRIP PLACED ON CHART.
--- NOTE | 2020-03-04 19:29 | NUR ---
PT ATTEMPTED TO GET OOB "TO GO TO THE BATHROOM". PLACED ON BEDPAN TO VOID. REPOSITIONED FOR COMFORT WHEN DONE. SIDE RAILS UP, CALL LIGHT IN REACH, AND BED EXIT ALARM ON & FUNCTIONAL.
[2020-03-04 20:00] VITALS: BP 119/52
--- NOTE | 2020-03-04 21:47 | NUR ---
DESPITE PREPARING FOR BATH/BED LINEN CHANGE, PT IS REFUSING BATH AT THIS TIME. AGAIN, PULLED PT UP AND POSITIONED.
--- NOTE | 2020-03-04 23:26 | NUR ---
TYLENOL FOR "PAIN" PER PT REQUEST. COMPLETE BATH AND BED LINEN CHANGE DONE. PT WAS COOPERATIVE AND WAS ABLE TO TURN SELF SIDE TO SIDE.
[2020-03-05] VITALS: BP 109/61
--- NOTE | 2020-03-05 | NUR ---
TYLENOL "A LITTLE" EFFECTIVE FOR PAIN PER PT.
--- NOTE | 2020-03-05 01:30 | NUR ---
ZOFRAN FOR PT C/O "UPSET STOMACH"
--- NOTE | 2020-03-05 02:00 | NUR ---
JUAN "A LITTLE" EFFECTIVE PER PT.
--- NOTE | 2020-03-05 02:47 | NUR ---
STOOL FOR CDIFF SENT ORDERED.
--- NOTE | 2020-03-05 03:10 | NUR ---
PT HAS ROLLED OVER TO HER LT SIDE ON HER OWN AND IS RESTING...WE HAVE EXPLAINED TO HER, REPEATEDLY, THE NEED FOR TURNING/REPOSITIONING/STAYING OFF OF HER BACK...TO PREVENT SKIN BREAKDOWN.
[2020-03-05 04:00] VITALS: BP 118/69
--- NOTE | 2020-03-05 05:00 | NUR ---
PT GIVEN TYLENOL FOR C/O PAIN, MOSTLY IN BACK AND TAILBONE.
--- NOTE | 2020-03-05 05:30 | NUR ---
PT DENIES THAT TYLENOL IS EFFECTIVE...REQUESTING HER PAIN PILLS, PHENERGAN, COUGH MEDICINE.
[2020-03-05 08:00] VITALS: BP 102/47
--- NOTE | 2020-03-05 08:00 | NUR ---
ANXIOUS. DEMADNING. MEDICATED WITH ATIVAN AND SEROQUEL ORDERED VIA PEG TUBE. FLUSHED WITH 50CC WATER. 2 RONEN HN CONTINUES TO INFUSE AT 45CC/HR. LIJ MLC INFUSING NS @ 60CC/HR. SCATTERED RHONCHI HEARD IN LUNG LEGGETT. SUCTIONED VIA TRACH FOR LARGE AMOUNT THICK GREEN SECRETIONS.
[2020-03-05 08:31] LABS: ABG BASE EXCESS 2.1 mmol/L (-2.0-2.0); ARTERIAL BLOOD GAS PH 7.352 (7.35-7.45)
--- NOTE | 2020-03-05 08:35 | NUR ---
TRACH CARE DONE. SITE CLEANED, DRESSING AND INNER CANNULA CHANGED.
--- NOTE | 2020-03-05 08:53 | NUR ---
INFECTIOUS DISEASE ANSWERING SERVICE NOTIFIED OF CONSULT
[2020-03-05 09:42] LABS: HEMATOCRIT 24.1 % (37.0-47.0); MEAN CELL VOLUME 103.9 fl (81.0-99.0); MEAN CORPUSCULAR HGB 32.3 pg (27.0-31.0); MEAN CORPUSCULAR HGB CONC 31.1 g/dl (33.0-37.0); MEAN PLATELET VOLUME 10.4 fl (9.6-12.3); NUCLEATED RED BLOOD CELL 0.2 % (0.0-0.0); PLATELET COUNT AUTOMATED 212 10*3/uL (130-400); RED BLOOD COUNT 2.32 10*6/uL (4.10-5.10); RED CELL DISTRI WIDTH 15.2 % (0-14.5); WHITE BLOOD COUNT 11.5 10*3/uL (4.8-10.8)
[2020-03-05 09:57] LABS: ALBUMIN 2.5 gm/dl (3.1-4.5); ALKALINE PHOSPHATASE 234 U/L (45-117); BUN 21 mg/dl (7-24); CHLORIDE 106 mmol/L (98-107); CREATININE 0.79 mg/dL (0.55-1.02); POTASSIUM 4.1 mmol/L (3.5-5.1); SGOT/AST 82 IU/L (3-35); SGPT/ALT 105 U/L (12-78); SODIUM 139 mmol/L (136-145); TOTAL PROTEIN 7.2 gm/dL (6.4-8.2)
[2020-03-05 09:58] LABS: PLATELET SUFFICIENCY NORMAL (NORMAL); ROULEAUX MODERATE; TOTAL CELLS COUNTED 100 #CELLS
[2020-03-05 12:00] VITALS: BP 115/70
--- NOTE | 2020-03-05 14:31 | NUR ---
Persistant liquid stool w/ excoriated se anal and buttock area . Fecal management system inserted.
--- NOTE | 2020-03-05 15:33 | NUR ---
INCONTINENT OF URINE. TURNED AND REPOSITIONED ONTO LEFT SIDE.
[2020-03-05 16:00] VITALS: BP 122/73
--- NOTE | 2020-03-05 16:15 | NUR ---
Medicated for generalized body aches and gas pain , See E-mar.
--- NOTE | 2020-03-05 17:42 | NUR ---
MEDICATED WITH OXY IR FOR COMPLAINTS OF PAIN ALL OVER, RATES PAIN A 9 ON A PAIN SCALE OF 1-10
--- NOTE | 2020-03-05 18:37 | NUR ---
RESTING WITH EYES CLOSED. OXYCODONE EFFECTIVE
--- NOTE | 2020-03-05 19:31 | NUR ---
Pt pulled up in bed. Pt suctioned for small amount of cream secretions. Tolerated well.
[2020-03-05 20:00] VITALS: BP 123/56
--- NOTE | 2020-03-05 20:22 | NUR ---
dr. hernandez notified that patient had a seizure right after assessment. patient had grabbed my hand as the aura started to present itself. patients child welfare assistant tensed up and body became rigid. small convulsions were noted. post ictal drowsiness was observed. whole seizure lasted less than a minute. patient states she has had seizure activity that has been worsening for the past couple months. patient states that she believes she has now had a total of four small seizures throughout the day. phenytoin level will be ordered for in the morning and dilantin dose will be pulled and given.
--- NOTE | 2020-03-05 23:55 | NUR ---
ROXYCODONE GIVEN TO PATIENT FOR C/O CHRONIC BACK AND HIP PAIN. PATIENT RATES PAIN AN 8/10 . WILL CONTINUE TO MONITOR AND REASSESS. CALL LIGHT WITHIN REACH.
--- NOTE | 2020-03-05 23:55 | NUR ---
COMPLETE BATH AND BED LINENS CHANGED AT THIS TIME. PATIENT TOLERATED WELL. PATIENT SUCTIONED FOR A SCANT AMOUNT OF SECRETIONS. REPOSTIONED FOR COMFORT. CALL LIGHT WITHIN REACH.
[2020-03-06] VITALS (14 sets, daily range): BP systolic 102–127; BP diastolic 61–83
--- NOTE | 2020-03-06 00:30 | NUR ---
MEDICATION EFFECTIVE. PATIENT SLEEPING AT THIS TIME WITH NO S/S OF DISTRESS. CALL LIGHT WITHIN REACH.
--- NOTE | 2020-03-06 03:00 | NUR ---
Pt suctioned for small amt of clear secretions. Trach care was done. No comps.
[2020-03-06 05:38] LABS: BUN 17 mg/dl (7-24); CHLORIDE 107 mmol/L (98-107); CREATININE 0.71 mg/dL (0.55-1.02); POTASSIUM 4.2 mmol/L (3.5-5.1); SODIUM 139 mmol/L (136-145)
[2020-03-06 05:47] LABS: PHENYTOIN (DILANTIN) 15.6 ug/ml (10-20)
[2020-03-06 06:03] LABS: HEMATOCRIT 23.3 % (37.0-47.0); MEAN CELL VOLUME 104.5 fl (81.0-99.0); MEAN CORPUSCULAR HGB 31.8 pg (27.0-31.0); MEAN CORPUSCULAR HGB CONC 30.5 g/dl (33.0-37.0); MEAN PLATELET VOLUME 10.7 fl (9.6-12.3); PLATELET COUNT AUTOMATED 218 10*3/uL (130-400); RED BLOOD COUNT 2.23 10*6/uL (4.10-5.10); RED CELL DISTRI WIDTH 14.9 % (0-14.5)
[2020-03-06 07:14] LABS: TOTAL CELLS COUNTED 100 #CELLS
[2020-03-06 07:18] LABS: PLATELET SUFFICIENCY NORMAL (NORMAL); ROULEAUX SLIGHT
[2020-03-06 07:28] LABS: ABG BASE EXCESS -0.1 mmol/L (-2.0-2.0); ARTERIAL BLOOD GAS PH 7.297 (7.35-7.45)
--- NOTE | 2020-03-06 08:05 | NUR ---
MEDICATED WITH OXYCODONE 5MG AND TYLENOL FOR COMPLAINTS OF PAIN IN BACK,HIPS, AND LLQ ABDOMEN. RATES PAIN A 9 ON A PAIN SCALE OF 1-10. SCATTERED RHONCHI HEARD IN LUNG LEGGETT. SUCTIONED VIA TRACH FOR THICK AMOUNT GREEN SECRETIONS. RECTAL CHANG INTACT AND DRAINING LIQUID STOOL. CALAZIME CREAM APPLIED TO EXCORIATED BUTTOCKS. PLACED ON BEDPAN.
--- NOTE | 2020-03-06 09:00 | NUR ---
RESTING WITH EYES CLOSED. OXY AND TYLENOL EFFECTIVE
--- NOTE | 2020-03-06 10:39 | NUR ---
FIRST UNIT BLOOD HUNG ORDERED
--- NOTE | 2020-03-06 12:30 | NUR ---
DR. CASTILLO HERE AND UPDATED ON PATIENT'S CONDITION.
--- NOTE | 2020-03-06 12:42 | NUR ---
DR. NAJERA NOTIFIED OF KUB RESULTS. WILL CALL BACK REGARDING REMOVING RECTAL TUBE AFTER SHE SPEAKS TO DR. ALTAMIRANO
--- NOTE | 2020-03-06 14:55 | NUR ---
VENT CHANGES MADE PER PHYSICIAN ORDER. AC 16, 500, 45%, +8. ABGS ORDERED FOR 1630.
[2020-03-06 16:21] LABS: ABG BASE EXCESS 0.8 mmol/L (-2.0-2.0); ARTERIAL BLOOD GAS PH 7.383 (7.35-7.45)
--- NOTE | 2020-03-06 17:10 | NUR ---
MEDICATED WITH OXY IR FOR COMPLAINTS OF PAIN ALL OVER. RATES PAIN A 9 ON A PAIN SCALE OF 1-10
--- NOTE | 2020-03-06 18:00 | NUR ---
CONTINUES TO COMPLAIN OF PAIN ALL OVER.
--- NOTE | 2020-03-06 18:11 | NUR ---
DR. CASTILLO NOTIFIED OF ABG AND CT ABDOMEN RESULTS. NO FURTHER ORDERS RECEIVED
--- NOTE | 2020-03-06 20:30 | NUR ---
EXPLAINED TO PATIENT THAT WE WERE GOING TO BE BATHING ANOTHER PATIENT AND THAT I WOULD BE UNAVAILABLE FOR APPROX 15-20MIN. ASKING IF PATIENT NEEDED ANYTHING PRIOR TO LEAVING ROOM, PT. IMMEDIATELY PUT NEON ELECTRICIAN LIGHT WITHING 5 MINUTES OF BATHING ANOTHER PATIENT AND THEN WAS VERY ANGRY NURSE WAS UNABLE TO ANSWER CALL LIGHT AND BANGING RAILS IMMEDIATELY. PT. REMAINS VERY ANXIOUS.
--- NOTE | 2020-03-06 20:57 | NUR ---
PT. RESTING IN BED. VERY ANXIOUS MOST OF THE TIME. CALL LIGHT FREQUENCY WITH TAPPING ON RAILS. PT. REMAINS ON VENTILATOR ORDERED, TRACH SITE ASYMPT. PT. SUCTIONED FOR MODERATE AMT OF THICK YELLOW MUCOUS VIA TRACH. LUNG HAVE RHONCHI AND WHEEZES BILAT, PULSE OX 95% ON 45% FIO2. ABDOMEN SOFTLY DISTENDED, OBESE WITH GENERALIZED ANASARCA. NO PERIPHERAL EDEMA NOTED. RECTAL CHANG INTACT DRAINING MODERATE AMTS OF LIGHT BROWN LIQUID. PT. GIVEN BED BATH AND BED LINENS CHANGED, TOLERATED WELL. CRYSTAL PRESSLEY RN
--- NOTE | 2020-03-06 21:20 | NUR ---
WHILE INTUBATING ANOTHER PATIENT, PT WAS BANGING ON RAILS AND PUTTING TOP ICER LIGHT. UNABLE TO ANSWER CALL LIGHT ANOTHER PATIENT WAS A RAPID RESPONSE AND BOTH NURSES WERE TIED UP WITH RESPIRATORY DISTRESS PATIENT. SOON POSSIBLE, THIS PATIENT WAS ATTENDED TOO, PT. STATED SHE COULDN'T BREATH, PULSE OX 96%. PT. VERY ANXIOUS. INSTRUCTED PT TO CALM DOWN AND PT STARTED YELLING "DONT TELL ME THAT". NURSE EXPLAINED VITAL SIGNS WERE STABLE AND PT. WAS MAKING HERSELF SHORT OF BREATH BY PANICKING. PT. STATED SHE HAD PEED THE BED SINCE NO ONE ANSWERED HER LIGHT. EXPLAINED AGAIN THAT NURSES WERE TIED UP WITH VERY SICK PATIENT IN ANOTHER ROOM. PT. CLEANED UP AND PAD UNDER PATIENT CHANGED. CRYSTAL PRESSLEY RN
--- NOTE | 2020-03-06 22:40 | NUR ---
PT. GIEN TYLENOL AND ZOFRAN FOR GENERAL CHRONIC ACHES AND PAINS AND NAUSEA AT 2205. PT. SLEEPING, TYLENOL AND ZOFRAN EFFECTIVE. CRYSTAL PRESSLEY RN
[2020-03-07] VITALS: BP 121/80
--- NOTE | 2020-03-07 00:15 | NUR ---
PT. GIVEN OXY IR ORDERED PER PT REQUEST FOR PAIN MED. GIVE AT 0009 FOR #8 ON 1-10 PAIN SCALE FOR CHRONIC BACK PAIN. CRYSTAL PRESSLEY RN
--- NOTE | 2020-03-07 00:36 | NUR ---
PT'S HR 101, PULSE OX 98% AND PT. SLEEPING, OXY IR EFFECTIVE. CRYSTAL PRESSLEY RN
[2020-03-07 04:00] VITALS: BP 95/54
--- NOTE | 2020-03-07 05:29 | NUR ---
PT. REQUESTING PAIN MEDICATION FOR BACK PAIN #8 ON 1-10 PAIN SCALE. GIVEN WALE IR ORDERED AT 0510. CRYSTAL PRESSLEY RN
--- NOTE | 2020-03-07 05:30 | NUR ---
PT. SLEEPING, VAIBHAV IR EFFECTIVE FOR PAIN.
[2020-03-07 07:10] LABS: ALBUMIN 2.4 gm/dl (3.1-4.5); ALKALINE PHOSPHATASE 226 U/L (45-117); BUN 19 mg/dl (7-24); CHLORIDE 104 mmol/L (98-107); CREATININE 0.93 mg/dL (0.55-1.02); POTASSIUM 4.3 mmol/L (3.5-5.1); SGOT/AST 114 IU/L (3-35); SGPT/ALT 169 U/L (12-78); SODIUM 138 mmol/L (136-145); TOTAL PROTEIN 7.1 gm/dL (6.4-8.2)
[2020-03-07 07:35] LABS: HEMATOCRIT 25.6 % (37.0-47.0); MEAN CORPUSCULAR HGB 32.3 pg (27.0-31.0); MEAN CORPUSCULAR HGB CONC 31.6 g/dl (33.0-37.0); MEAN PLATELET VOLUME 10.8 fl (9.6-12.3); NUCLEATED RED BLOOD CELL 0.2 % (0.0-0.0); PLATELET COUNT AUTOMATED 222 10*3/uL (130-400); RED BLOOD COUNT 2.51 10*6/uL (4.10-5.10); RED CELL DISTRI WIDTH 15.6 % (0-14.5); WHITE BLOOD COUNT 12.1 10*3/uL (4.8-10.8)
--- NOTE | 2020-03-07 07:58 | NUR ---
CHART CHECK COMPLETED.
[2020-03-07 08:00] VITALS: BP 115/74
[2020-03-07 08:28] LABS: ABG BASE EXCESS 0.9 mmol/L (-2.0-2.0); ARTERIAL BLOOD GAS PH 7.393 (7.35-7.45)
[2020-03-07 08:45] LABS: PLATELET SUFFICIENCY NORMAL (NORMAL); TOTAL CELLS COUNTED 100 #CELLS
--- NOTE | 2020-03-07 09:09 | NUR ---
Received call from Regan RN ICCU stating Dr. Stewart would like this patient referred to LTACH. Contacted Fidelia from [facility] and faxed face sheet to check for LTACH benefits. Waiting on return call.
[2020-03-07 11:35] LABS: ABG BASE EXCESS 0.9 mmol/L (-2.0-2.0); ARTERIAL BLOOD GAS PH 7.394 (7.35-7.45)
[2020-03-07 12:00] VITALS: BP 131/87
--- NOTE | 2020-03-07 12:35 | NUR ---
Jennifer stating they can accept patient to [facility]. Patients stating he has no idea where "[facility]" is. when I verified his address as what was registered in our system as [facility], he stated he has no idea where that address came from as he has always lived in [place] ([place] I changed this in our hospital system and faxed the referral to [facility] location. Waiting on review/acceptance from [facility]
--- NOTE | 2020-03-07 13:00 | NUR ---
Physical Therapy evaluation completed in ICCU with full evaluation to follow. Recommend physical therapy per plan of care and LTACH vs SNF upon discharge. Thank you for this referral. Amirah Tran PT
--- NOTE | 2020-03-07 13:01 | NUR ---
Occupational Therapy evaluation completed on ICCU with full evaluation to follow. Recommend occupational therapy per plan of care and LTACH versus SNF upon discharge. Thank you for this referral. Ratna Santiago OTR/L
--- NOTE | 2020-03-07 13:43 | NUR ---
Patient is being discharged to return to [facility]. Contacted Jennifer and Maria [facility] and notified them to please cancel referral at this time. Faxed updates to [facility] and spoke to Cierra. She asked for a short amount of time to get a respiratory therapist on site so patient was set up for transport for 4 PM with [facility]. Notified Regan RN/ICCU and steward/stewardess dining room, also notified patients .
[2020-03-07] MEDS ORDERED: PREDNISONE10 MG PO (15:13)
--- NOTE | 2020-03-07 15:18 | NUR ---
Per hospitalists directions patient pickle maker time changed from 4 PM to 6 PM waiting on infectious disease doctor to come in.
[2020-03-07] MEDS ORDERED: DOXYCYCLINE100 M3 PO (15:30)
[2020-03-07] MEDS ORDERED: LEVAQUIN750 M1 PO (15:30)
[2020-03-07 16:00] VITALS: BP 119/80
--- NOTE | 2020-03-07 18:15 | NUR ---
Discharge instructions reviewed with patient/family. Patient receptive and verbalizes understanding. Follow-up care arranged WITH PCP IN ONE WEEK. Written instructions given TO PATIENT PATIENT TAKEN OFF OF FLOOR VIA [facility]. CENTRAL LINE REMOVED. NURSE TO NURSE REPORT GIVEN TO RODNEY PICKETT AT [facility]. GILES COLLIER
== END 2020-03-07 18:31 | DRG 870 ==
LOC: ED 22:31 → ICCU 03-02 00:47 → EDHOLD 03-02 00:47 → ICCU 03-02 01:02
PROVIDERS: Emergency Medicine; Hospitalist; Internal Medicine; Internal Medicine Critical Care Medicine; Student in an Organized Health Care Education/Training Program; ADMIT Internal Medicine
PROC: 0BC48ZZ Extirpation of Matter from Right Upper Lobe Bronchus, Via Natural or Artificial Opening Endoscopic (ICD-10-PCS; principal; 2020-03-02)
PROC: 0BC58ZZ Extirpation of Matter from Right Middle Lobe Bronchus, Via Natural or Artificial Opening Endoscopic (ICD-10-PCS; principal; 2020-03-02)
PROC: 0BC88ZZ Extirpation of Matter from Left Upper Lobe Bronchus, Via Natural or Artificial Opening Endoscopic (ICD-10-PCS; principal; 2020-03-02)
PROC: 0BC38ZZ Extirpation of Matter from Right Main Bronchus, Via Natural or Artificial Opening Endoscopic (ICD-10-PCS; principal; 2020-03-02)
PROC: 0BCB8ZZ Extirpation of Matter from Left Lower Lobe Bronchus, Via Natural or Artificial Opening Endoscopic (ICD-10-PCS; principal; 2020-03-02)
PROC: 0BC68ZZ Extirpation of Matter from Right Lower Lobe Bronchus, Via Natural or Artificial Opening Endoscopic (ICD-10-PCS; principal; 2020-03-02)
PROC: 02H633Z Insertion of Infusion Device into Right Atrium, Percutaneous Approach (ICD-10-PCS; principal; 2020-03-02)
PROC: B548ZZA Ultrasonography of Superior Vena Cava, Guidance (ICD-10-PCS; principal; 2020-03-02)
PROC: 0BC78ZZ Extirpation of Matter from Left Main Bronchus, Via Natural or Artificial Opening Endoscopic (ICD-10-PCS; principal; 2020-03-02)
PROC: 0BC18ZZ Extirpation of Matter from Trachea, Via Natural or Artificial Opening Endoscopic (ICD-10-PCS; principal; 2020-03-02)
PROC: 4A133B1 Monitoring of Arterial Pressure, Peripheral, Percutaneous Approach (ICD-10-PCS; principal; 2020-03-02)
PROC: 03HY32Z Insertion of Monitoring Device into Upper Artery, Percutaneous Approach (ICD-10-PCS; principal; 2020-03-02)
PROC: 4A133J1 Monitoring of Arterial Pulse, Peripheral, Percutaneous Approach (ICD-10-PCS; principal; 2020-03-02)
PROC: 0BC98ZZ Extirpation of Matter from Lingula Bronchus, Via Natural or Artificial Opening Endoscopic (ICD-10-PCS; principal; 2020-03-02)
PROC: 5A1955Z Respiratory Ventilation, Greater than 96 Consecutive Hours (ICD-10-PCS; 2020-03-02)
DX: A41.9 Sepsis, unspecified organism (principal); J96.21 Acute and chronic respiratory failure with hypoxia; R65.21 Severe sepsis with septic shock; J96.22 Acute and chronic respiratory failure with hypercapnia; J15.212 Pneumonia due to Methicillin resistant Staphylococcus aureus; E87.1 Hypo-osmolality and hyponatremia; E44.1 Mild protein-calorie malnutrition; I13.0 Hypertensive heart and chronic kidney disease with heart failure and stage 1 through stage 4 chronic kidney disease, or unspecified chronic kidney disease; J44.0 Chronic obstructive pulmonary disease with (acute) lower respiratory infection; Z99.11 Dependence on respirator [ventilator] status; I42.9 Cardiomyopathy, unspecified; N17.9 Acute kidney failure, unspecified; R18.8 Other ascites; I50.42 Chronic combined systolic (congestive) and diastolic (congestive) heart failure; J44.1 Chronic obstructive pulmonary disease with (acute) exacerbation; R73.9 Hyperglycemia, unspecified; E83.41 Hypermagnesemia; R74.0 Nonspecific elevation of levels of transaminase and lactic acid dehydrogenase [LDH]; D53.9 Nutritional anemia, unspecified; I25.10 Atherosclerotic heart disease of native coronary artery without angina pectoris; R16.0 Hepatomegaly, not elsewhere classified; F32.9 Major depressive disorder, single episode, unspecified; R56.9 Unspecified convulsions; I27.20 Pulmonary hypertension, unspecified; M48.00 Spinal stenosis, site unspecified; M34.1 CR(E)ST syndrome; Z93.1 Gastrostomy status; Z93.0 Tracheostomy status; E87.8 Other disorders of electrolyte and fluid balance, not elsewhere classified; E03.9 Hypothyroidism, unspecified; N18.3 Chronic kidney disease, stage 3 (moderate); G43.709 Chronic migraine without aura, not intractable, without status migrainosus; K21.9 Gastro-esophageal reflux disease without esophagitis; M79.7 Fibromyalgia; R13.10 Dysphagia, unspecified; F41.1 Generalized anxiety disorder; L25.8 Unspecified contact dermatitis due to other agents; E88.09 Other disorders of plasma-protein metabolism, not elsewhere classified; I48.91 Unspecified atrial fibrillation; N39.498 Other specified urinary incontinence; Z20.828 Contact with and (suspected) exposure to other viral communicable diseases; I34.0 Nonrheumatic mitral (valve) insufficiency; E83.39 Other disorders of phosphorus metabolism; Z86.711 Personal history of pulmonary embolism; Z79.01 Long term (current) use of anticoagulants; Z88.5 Allergy status to narcotic agent; Z88.8 Allergy status to other drugs, medicaments and biological substances; Z68.32 Body mass index [BMI] 32.0-32.9, adult

== ENCOUNTER 2020-04-05 18:49 | Inpatient (IN) | payer OTHER, MEDICAID ==
[~2020-04-05] VITALS: Ht 167.6 cm; Wt 81.6 kg
[~2020-04-05 18:49] MED LIST changes: +DOXYCYCLINE100 M3 PO; -LASIX40 MG PEG; +LASIX80 MG PO; +PREDNISONE10 MG PO; +TYLOPHEN500 M2 PEG; -TYLOPHEN500 M2 PO
[2020-04-05 19:00] VITALS: BP 92/60
--- NOTE | 2020-04-05 19:33 | NUR ---
PT PLACED ON A/C 12 400 +10 100%. ALARMS ON AND AUDIBLE. SXN FOR SCANT AMT. OF THICK BLOOD TINGED SPUTUM. ABGS OBTAINED.
[2020-04-05 19:41] LABS: ABG BASE EXCESS 11.1 mmol/L (-2.0-2.0); ARTERIAL BLOOD GAS PH 7.382 (7.35-7.45)
[2020-04-05 21:10] LABS: HEMATOCRIT 31.9 % (37.0-47.0); MEAN CELL VOLUME 94.7 fl (81.0-99.0); MEAN CORPUSCULAR HGB 31.8 pg (27.0-31.0); MEAN CORPUSCULAR HGB CONC 33.5 g/dl (33.0-37.0); MEAN PLATELET VOLUME 9.6 fl (9.6-12.3); PLATELET COUNT AUTOMATED 357 10*3/uL (130-400); RED BLOOD COUNT 3.37 10*6/uL (4.10-5.10); RED CELL DISTRI WIDTH 14.6 % (0-14.5); WHITE BLOOD COUNT 28.8 10*3/uL (4.8-10.8)
[2020-04-05 21:23] LABS: ACT PARTIAL THROMBO TIME 27.1 SECONDS (20.0-32.1)
[2020-04-05 21:26] LABS: ALBUMIN 3.1 gm/dl (3.1-4.5); ALKALINE PHOSPHATASE 146 U/L (45-117); BUN 40 mg/dl (7-24); CHLORIDE 80 mmol/L (98-107); CREATININE 0.94 mg/dL (0.55-1.02); POTASSIUM 3.8 mmol/L (3.5-5.1); SGOT/AST 23 IU/L (3-35); SGPT/ALT 35 U/L (12-78); SODIUM 125 mmol/L (136-145); TOTAL CELLS COUNTED 100 #CELLS; TOTAL PROTEIN 8.7 gm/dL (6.4-8.2)
[2020-04-05 21:27] LABS: PLATELET SUFFICIENCY NORMAL (NORMAL)
[2020-04-05 21:28] LABS: TROPONIN I < 0.015 ng/ml (<0.045)
[2020-04-05 21:43] VITALS: BP 106/63
--- NOTE | 2020-04-05 21:44 | NUR ---
DR. BLUM ATTEMPTED A CENTRAL LINE WITH NO SUCCESS. 5 PERIPHERAL IV ATTEMPS MADE AND NOT SUCCESSFUL.
[2020-04-05 22:37] VITALS: BP 99/46
[2020-04-05 23:52] VITALS: BP 104/71
[2020-04-06] VITALS (8 sets, daily range): BP systolic 92–125; BP diastolic 33–86
[2020-04-06 04:14] LABS: ABG BASE EXCESS 9.3 mmol/L (-2.0-2.0); ARTERIAL BLOOD GAS PH 7.417 (7.35-7.45)
[2020-04-06 04:46] LABS: CREATININE 1.12 mg/dL (0.55-1.02); POTASSIUM 3.3 mmol/L (3.5-5.1); TOTAL PROTEIN 8.9 gm/dL (6.4-8.2)
[2020-04-06 04:52] LABS: THYROID STIM HORMONE (HS) 25.7 uIU/ml (0.358-4.75)
[2020-04-06] MEDS ORDERED: NUTREN 2.0250 ML PEG (05:32)
[2020-04-06] MEDS ORDERED: SORE THROAT 17177 ML PO (05:41)
[2020-04-06] MEDS ORDERED: CIPROFLOXACIN750 MG PEG (05:44)
[2020-04-06] MEDS ORDERED: [UNRECOGNIZED DRUG - OTHER] T (05:47)
[2020-04-06] MEDS ORDERED: FLEET ENEMA 13133 ML R (05:50)
[2020-04-06] MEDS ORDERED: HYDROXYZINE HCL25 MG PEG (05:52)
[2020-04-06] MEDS ORDERED: LEVOTHYROXINE175 MCG PEG (05:55)
[2020-04-06] MEDS ORDERED: Zaroxolyn,Diul2.5 MG PEG (05:57)
[2020-04-06] MEDS ORDERED: LEVOTHYROXINE200 MC2 PEG (05:59)
[2020-04-06] MEDS ORDERED: OMEPRAZOLE40 MG PEG (06:03)
[2020-04-06] MEDS ORDERED: OXYCODONE H5 MG/5 ML PEG (06:04)
[2020-04-06] MEDS ORDERED: SEROQUEL100 MG PEG (06:07)
[2020-04-06 06:13] LABS: HEMATOCRIT 31.6 % (37.0-47.0); MEAN CELL VOLUME 95.5 fl (81.0-99.0); MEAN CORPUSCULAR HGB 32.6 pg (27.0-31.0); MEAN CORPUSCULAR HGB CONC 34.2 g/dl (33.0-37.0); MEAN PLATELET VOLUME 10.2 fl (9.6-12.3); PLATELET COUNT AUTOMATED 378 10*3/uL (130-400); RED BLOOD COUNT 3.31 10*6/uL (4.10-5.10); RED CELL DISTRI WIDTH 14.7 % (0-14.5)
--- NOTE | 2020-04-06 06:18 | NUR ---
BEAU CLAKR CALLED TO DOCTOR MENDOSA NO NEW ORDRES AT THIS TIME.
--- NOTE | 2020-04-06 06:19 | NUR ---
PATIENT MED REC IS UP TO DATE PER PACKET SENT FROM [facility].
[2020-04-06 06:48] LABS: PLATELET SUFFICIENCY NORMAL (NORMAL); POLYCHROMASIA SLIGHT; TOTAL CELLS COUNTED 100 #CELLS
--- NOTE | 2020-04-06 07:10 | NUR ---
REPORT FROM EMLISSA PICKETT AT THIS TIME. PATIENT LAYING IN BED RESTING PEACEFULLY WITH TV ON WATCHING IT. APPEARS IN NO DISTRESS. VSS. WILL CONTINUE TO MONITOR.
--- NOTE | 2020-04-06 08:40 | NUR ---
A 70, admitted to , under the services of JASMIN Mcgee DO with a diagnosis of PNEUMONIA. Chief complaint is INCREASED SOB X 3 DAYS. Patient arrived via stretcher from ER. Monitor applied. Initial assessment completed. Vital signs taken and recorded. JASMIN MCGEE DO notified of admission to the unit. Orders received. See assessment for past medical history, medications and allergies. Patient and/or family oriented to unit. [facility]U visitation policy reviewed. Clothing/patient valuable form completed. LINARES
--- NOTE | 2020-04-06 08:45 | NUR ---
PATIENT TAKEN TO THE FLOOR BY THIS NURSE AND RESPIRATORY REPORT GIVEN TO MARYAM PICKETT PRIOR TO TAKING PATIENT UPSTAIRS.
--- NOTE | 2020-04-06 09:00 | NUR ---
UPON ROLLING PATIENT RASH IS NOTED TO BL BUTTOCKS BY THIS NURSE. TUNDE RN IN WOUND CARE NOTIFIED.
--- NOTE | 2020-04-06 10:00 | NUR ---
DR CASTILLO IN TO SEE PT. HE ORDERED TO GET CONSENT FOR BEDSIDE BRONCHOSCOPY IN THE AM. HE DID SPEAK WITH THE PT ABOUT THE PROCEDURE. PT DID AGREE FOR BRONCH.
--- NOTE | 2020-04-06 11:27 | NUR ---
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
--- NOTE | 2020-04-06 12:10 | NUR ---
MULTIPLE ATTEMPTS MADE TO CONTACT DR ROSENBERG'S OFFICE TO NOTIFY OF NEW CONSULT BUT NOBODY PICKS UP THE LINE. I ALSO TRIED TO NOTIFY THROUGH ANSWERING SERVICE BUT THEY WOULD NOT TAKE THE INFO. BECAUSE IT IS NOT AFTER HOURS.
--- NOTE | 2020-04-06 12:30 | NUR ---
PT RESTING. PT C/O NAUSEA. DR MCCAIN NOTIFIED.
--- NOTE | 2020-04-06 13:11 | NUR ---
MEDICATED PT PER PRN ORDER WITH ZOFRAN FOR C/O NAUSEA.
--- NOTE | 2020-04-06 14:00 | NUR ---
PT STATES "A LITTLE" RELIEF OF NAUSEA WITH EARLIER ZOFRAN.
--- NOTE | 2020-04-06 14:19 | NUR ---
DR ROSENBERG'S OFFICE STAFF NOTIFIED OF NEW CONSULT.
--- NOTE | 2020-04-06 14:37 | NUR ---
DR ROSENBERG CALLED IN REGARDING PT. UPDATED HER ON PT'S CONDITION AND PLAN OF CARE. NEW ORDERS RECEIVED.
[2020-04-06 15:05] LABS: BILIRUBIN NEGATIVE (NEGATIVE); BLOOD 1+ (NEGATIVE); CLARITY CLOUDY (CLEAR); COLOR YELLOW (YELLOW); GLUCOSE NEGATIVE (NEGATIVE); KETONE NEGATIVE (NEGATIVE); SPECIFIC GRAVITY 1.015 (1.005-1.030)
[2020-04-06 15:06] LABS: LEUKO ESTERASE 2+ (NEGATIVE); NITRITE NEGATIVE (NEGATIVE); UROBILINOGEN 0.2 E.U./dl (0.2-1.0)
--- NOTE | 2020-04-06 15:21 | NUR ---
DR MCCAIN NOTIFIED OF POSITIVE BLOOD CULTURE RESULT.
[2020-04-06 15:45] LABS: BACTERIA 3+; WBC TNTC wbc/hpf (0-5)
[2020-04-06 15:46] LABS: CALCIUM OXALATE CRYSTALS 2+
--- NOTE | 2020-04-06 15:53 | NUR ---
BLOOD CULTURES DRAWN PER ORDER.
--- NOTE | 2020-04-06 16:54 | NUR ---
UPDATED DR CASTILLO ON PT'S CONDITION AND PLAN OF CARE. NEW ORDERS RECEIVED TO D/C CERTAIN LABS. UPDATED PT'S ,DEANA, ON PT'S CONDITION AND PLAN OF CARE.
--- NOTE | 2020-04-06 17:33 | NUR ---
UPDATED DR RAMÍREZ ON PT'S CONTINUED AFLUTTER RATE 120'S 140'S WITH BURSTS TO 150. NEW ORDER RECEIVED FOR ONE TIME DOSE OF IV DIGOXIN 250 MCG.
--- NOTE | 2020-04-06 18:10 | NUR ---
IV DIGOXIN 250MCG GIVEN PER ORDER. HR 135 AFLUTTER PRIOR TO DIGOXIN AND 110'S POST. PT C/O "BIENG HOT" AND DID NOT WANT TEDS AND HEEL RISER BOOTS AT THIS TIME.
--- NOTE | 2020-04-06 20:00 | NUR ---
Patient resting, no signs of distress. Patient has no nausea at this time, but didnt want to take her vistaril in case it upset her stomach. Patient denies any pain at this time. Patient left in view of staff and call light in reach.
--- NOTE | 2020-04-06 20:40 | NUR ---
24 HR chart check completed.
[2020-04-07] VITALS: BP 92/53
--- NOTE | 2020-04-07 03:46 | NUR ---
Upon discharge recommend patient to follow up for wound care in outpatient setting continue current wound care orders at discharging facility.
[2020-04-07 04:00] VITALS: BP 99/45
--- NOTE | 2020-04-07 04:23 | NUR ---
Upon discharge recommend patient to follow up for wound care in outpatient setting continue current wound care orders at discharging facility.
[2020-04-07 07:13] LABS: HEMATOCRIT 26.8 % (37.0-47.0); MEAN CELL VOLUME 98.2 fl (81.0-99.0); MEAN CORPUSCULAR HGB 32.6 pg (27.0-31.0); MEAN CORPUSCULAR HGB CONC 33.2 g/dl (33.0-37.0); MEAN PLATELET VOLUME 10.3 fl (9.6-12.3); RED BLOOD COUNT 2.73 10*6/uL (4.10-5.10); RED CELL DISTRI WIDTH 14.9 % (0-14.5)
[2020-04-07 07:17] LABS: PLATELET COUNT AUTOMATED 257 10*3/uL (130-400); WHITE BLOOD COUNT 37.4 10*3/uL (4.8-10.8)
--- NOTE | 2020-04-07 07:23 | NUR ---
DR MCCAIN NOTIFIED OF CRITICAL WBC 37.4. THIS VALUE IS LOWER THAN YESTERDAY'S VALUE OF 42.
[2020-04-07 07:26] LABS: ALBUMIN 2.5 gm/dl (3.1-4.5); CREATININE 1.22 mg/dL (0.55-1.02); POTASSIUM 3.3 mmol/L (3.5-5.1)
[2020-04-07 07:39] LABS: PLATELET SUFFICIENCY NORMAL (NORMAL); TOTAL CELLS COUNTED 100 #CELLS
[2020-04-07 07:40] LABS: ROULEAUX SLIGHT; STOMATOCYTE FEW; TOXIC GRANULATION SLIGHT
[2020-04-07 08:00] VITALS: BP 100/60
--- NOTE | 2020-04-07 08:15 | NUR ---
OT NOTE Occupational therapy order received and chart reviewed. Patient going for a bronch this AM. Will continue to follow. Ratna Santiago OTR/L
--- NOTE | 2020-04-07 08:49 | NUR ---
ON ASSESSMENT PATIENT IS RESTING EASILY, TRACH INTACT, ON VENTILATOR. AROUSES EASILY TO HER NAME AND ANSWERS APPROPRIATELY. SHE'S FOR BEDSIDE BRONCHOSCOPY TODAY, THEREFORE TUBE FEEDINGS OFF AND DETACHED FROM HER PEG. HEP LOCK INTACT LEFT ARM. SEE ALL APPROPRIATE INTERVENTIONS.
--- NOTE | 2020-04-07 10:30 | NUR ---
TRACH CARE DONE. CLEANED INNER CANNULA AND GAUZE. PT TOLERATED WELL.
--- NOTE | 2020-04-07 10:58 | NUR ---
PHYSICAL THERAPY Eval orders received pt for brochoscopy this AM will follow at a later time. Amirah Tarn PT
--- NOTE | 2020-04-07 11:40 | NUR ---
[facility] TEACHER FAXED PALLIATIVE CARE ORDER TO [facility].
[2020-04-07 12:00] VITALS: BP 93/46
--- NOTE | 2020-04-07 13:16 | NUR ---
PER CALL CENTER TEAM LEADER, THEY HAVE MADE CONTACT WITH PALLIATIVE CARE PER ORDER THIS MORNING. PT RESTING EASILY. SHE'S BEEN CONTINENT OF BOWEL AND FOR THE MOST PART URINE TODAY. SHE'S PARTICIPATED WITH REPOSITIONING HERSELF. SHE'S TALKED VIA PHONE WITH HER AND HER SISTER. CARDIOLOGY HAS VISITED. SHE'S BEEN GIVEN HER SCHEDULED ATIVAN. TUBE FEEDINGS INFUSING AT 45/HR. ABG'S DONE RT RADIAL FOLLOWING P/P.
[2020-04-07 13:39] LABS: ABG BASE EXCESS 8.9 mmol/L (-2.0-2.0); ARTERIAL BLOOD GAS PH 7.464 (7.35-7.45)
--- NOTE | 2020-04-07 13:43 | NUR ---
RESPIRATORY HAS TITRATED FIO2 TO 60%.
--- NOTE | 2020-04-07 14:01 | NUR ---
DR CASTILLO MADE AWARE OF ABG RESULTS. REPEAT ABGS IN AM.
--- NOTE | 2020-04-07 14:15 | NUR ---
PT RESTING WATCHING TV. SOME ANXIETY PERSISTS IN SPITE OF SCHEDULED ATIVAN.
--- NOTE | 2020-04-07 14:48 | NUR ---
PT C/O RT SIDED CHEST HEAVINESS. RESPIRATORY CALLED AND AN AEROSOL TREATMENT IS BEING GIVEN, BUT PATIENT SAYS "I DON'T FEEL GOOD". ENCOURAGED TO LET AEROSOL TREATMENT WORK. REASSURANCES GIVEN.
--- NOTE | 2020-04-07 14:51 | NUR ---
ROXICODONE 5MG GIVEN FOR PT'S CHEST HEAVINESS.
--- NOTE | 2020-04-07 15:11 | NUR ---
Shift chart check completed.24 HR chart check completed.
--- NOTE | 2020-04-07 15:45 | NUR ---
DOZING AT INTERVALS SINCE THE EARLIER ROXICODONE. REQUESTED TO TALK VIA PHONE WITH HER AND THIS HAS BEEN ACCOMODATED.
[2020-04-07 16:00] VITALS: BP 90/56
--- NOTE | 2020-04-07 16:35 | NUR ---
PT COMPLAINS "I'M SICK". NO EMESIS. ZOFRAN PER PRN DOSE.
--- NOTE | 2020-04-07 17:12 | NUR ---
PALLIATIVE CARE IN TO SEE PATIENT.
--- NOTE | 2020-04-07 17:30 | NUR ---
NO EMESIS SINCE THE EARLIER ZOFRAN.
--- NOTE | 2020-04-07 19:16 | NUR ---
24 HR chart check completed.
--- NOTE | 2020-04-07 19:49 | NUR ---
Patient resting, no signs of distress. Does awake easily, and answers appropriately. Patient denies any pain at this time or any nausea. Tried to adjust for comfort, but patient prefers to lay on back. Patient denies the need for a bedpan at this time. Patient left with call light in reach.
[2020-04-07 20:00] VITALS: BP 90/50
--- NOTE | 2020-04-07 20:23 | NUR ---
Patients heart rate 120-130's. Metoprolol given early. Will monitor.
--- NOTE | 2020-04-07 21:45 | NUR ---
Patients pox slowly dropping to around 82%, notified respiratory, they arrived to floor, suctioned patient and removed many blood clots and flushed with cold saline. I notified Dr. Moffett of possible bleeding and to see about holding the eliquis. No new orders received. Respiratory will pull blood gases and make changes and notify Dr. Stewart.
--- NOTE | 2020-04-07 22:00 | NUR ---
Patients heart rate 90-low 100's.
--- NOTE | 2020-04-07 22:40 | NUR ---
Dr. Stewart notified by respiratoy with results of blood gases and patients status. New order received to get cxr in the am, racemic epi ordered for now and 1hr later.
[2020-04-07 22:41] LABS: ARTERIAL BLOOD GAS PH 7.378 (7.35-7.45)
--- NOTE | 2020-04-07 23:00 | NUR ---
Patient pox 94% on 80% FIO2, patient under no distress. Monitoring.
[2020-04-08] VITALS: BP 90/51
--- NOTE | 2020-04-08 02:15 | NUR ---
Patient given roxicodone for back pain. Will monitor and reassess.
[2020-04-08 03:58] VITALS: BP 97/49
--- NOTE | 2020-04-08 04:15 | NUR ---
Patient refused a bath, due to being in too much pain.
[2020-04-08 05:10] LABS: BASO % 0.1 % (0.0-1.0); HEMATOCRIT 23.8 % (37.0-47.0); LYMPH # 0.4 10*3/uL (1.3-4.4); LYMPH % 1.4 % (27.0-41.0); MEAN CELL VOLUME 98.8 fl (81.0-99.0); MEAN CORPUSCULAR HGB 32.8 pg (27.0-31.0); MEAN CORPUSCULAR HGB CONC 33.2 g/dl (33.0-37.0); MEAN PLATELET VOLUME 9.9 fl (9.6-12.3); MONO % 3.9 % (3.0-9.0); NEUT # 23.7 10*3/uL (2.3-7.9); NEUT % 93.9 % (47.0-73.0); PLATELET COUNT AUTOMATED 215 10*3/uL (130-400); RED BLOOD COUNT 2.41 10*6/uL (4.10-5.10); RED CELL DISTRI WIDTH 15.1 % (0-14.5); WHITE BLOOD COUNT 25.2 10*3/uL (4.8-10.8)
[2020-04-08 05:13] LABS: PLATELET SUFFICIENCY NORMAL (NORMAL); TOTAL CELLS COUNTED 100 #CELLS
[2020-04-08 05:14] LABS: ALBUMIN 2.3 gm/dl (3.1-4.5); CREATININE 1.16 mg/dL (0.55-1.02); POTASSIUM 3.1 mmol/L (3.5-5.1); TOTAL PROTEIN 7.5 gm/dL (6.4-8.2)
--- NOTE | 2020-04-08 07:17 | NUR ---
Updates faxed to [facility] [place] for review. Patient is [facility] care and is ok to return when medically stable
[2020-04-08 08:00] VITALS: BP 96/43
--- NOTE | 2020-04-08 08:07 | NUR ---
MEDICATED FOR GENERALIZED PAIN. REPOSITIONED FOR COMFORT TO CHAIR.
[2020-04-08 08:25] LABS: ARTERIAL BLOOD GAS PH 7.383 (7.35-7.45)
--- NOTE | 2020-04-08 08:56 | NUR ---
Shift chart check completed.24 HR chart check completed.
--- NOTE | 2020-04-08 09:05 | NUR ---
PATIENT FALLING ASLEEP.
[2020-04-08 10:00] VITALS: BP 99/58
--- NOTE | 2020-04-08 10:08 | NUR ---
O2 DECREASED TO 70%, ABG IN 2 HOURS.
--- NOTE | 2020-04-08 10:32 | NUR ---
PHYSICAL THERAPY PT evaluation attempted, pt deffered due feeling that she did not need services at this time. Per pt and nsg pt is up in room ambulating to bathroom on own. Plan to follow through care at hosptial if pts functional status declines. Thank you. Kvng Gilbert SPT Amirah Tran PT
--- NOTE | 2020-04-08 10:40 | NUR ---
OT NOTE Occupational therapy order received and chart reviewed. Per discussion with nurse, patient was just returned to bed following being in the chair and BSC this AM. Will return later this date for completion of an OT evaluation. Thank you. Ratna Santiago OTR/L
--- NOTE | 2020-04-08 10:41 | NUR ---
PHYSICAL THERAPY PT evaluation attempted, per nsg please try again at a later time due to pt already being out of bed this morning. Will attempt at a later time. Thank you. Kvng Gilbert SPT Amirah Tran PT
--- NOTE | 2020-04-08 11:24 | NUR ---
C/O RIGHT LEG PAIN 05/05. RESTING IN BED.
--- NOTE | 2020-04-08 12:02 | NUR ---
OT NOTE Occupational therapy order received and chart reviewed. Attempted to see patient, however, she is refusing due to increased RLE pain. Nursing and MD aware of patient's complaints. Discussed with nursing and with the patient about her PLOF. Will check back at a later date for completion of an OT evaluation. Thank you. Ratna Santiago, OTR/L
--- NOTE | 2020-04-08 12:02 | NUR ---
PHYSICAL THERAPY Attempted to see pt for evaluation, spoke with patient at the doorway regarding therapy and declining at this time due to fatigue and c/o RLE pain per nsg was medicated, Resident does not belive pt has DVT. Per nsg pt was OOB to recliner chair for approximately 1 1/2 hours earlier this AM. Will follow at a later date. Amirah Tran PT
[2020-04-08 12:07] LABS: ACID FAST SPEC PROCESSING Concentration (.)
--- NOTE | 2020-04-08 12:20 | NUR ---
PATIENT STATES NO CHANGE IN PAIN. C/O RIGHT LEG PAIN.
[2020-04-08 12:39] LABS: ABG BASE EXCESS 6.5 mmol/L (-2.0-2.0); ARTERIAL BLOOD GAS PH 7.397 (7.35-7.45)
--- NOTE | 2020-04-08 12:53 | NUR ---
O2 DECREASED TO 60%, AFTER ABG RESULTS, DR. CASTILLO CALLED AND LEFT MESSAGE. RN NOTIFIED.
--- NOTE | 2020-04-08 12:59 | NUR ---
DR CASTILLO NOTIFIED OF ABG RESULTS, AND THAT RESPIRATORY HAS TITRATED HER DOWN TO 60%. REPEAT ABG'S IN 4 HOURS.
--- NOTE | 2020-04-08 13:03 | NUR ---
PATIENT HAS BEEN COMPLAINING ALL MORNING ABOUT HER RIGHT KNEE/CALF HURTING. DR SANFORD HAS EXAMINED PT SEVERAL TIMES. SHE'S HAD OXY IR EARLIER AND TYLENOL MORE RECENTLY. SHE'S BEEN OUT OF BED, BEARING WEIGHT FAIRLY WELL, BUT IS VERY UNCOMFORTABLE. AN ULTRASOUND OF THE LEG HAS BEEN ORDERED.
--- NOTE | 2020-04-08 14:46 | NUR ---
TRANSTHORACIC ECHO IS DONE. ULTRASOUND HERE DOING RT LEG ULTRASOUND.
--- NOTE | 2020-04-08 15:28 | NUR ---
PATIENT C/O RIGHT LEG PAIN 04/04. MEDICATED WITH ROXICODONE GIVEN.
[2020-04-08 16:00] VITALS: BP 109/46
--- NOTE | 2020-04-08 16:25 | NUR ---
DECREASED PAIN POST MEDICATED.
[2020-04-08 17:13] LABS: ABG BASE EXCESS 7.1 mmol/L (-2.0-2.0); ARTERIAL BLOOD GAS PH 7.392 (7.35-7.45)
--- NOTE | 2020-04-08 17:31 | NUR ---
NOTIFIED OF ABG RESULTS,MAINTAIN SETTINGS ON VENT. RN NOTIFIED.
--- NOTE | 2020-04-08 18:54 | NUR ---
JUAN DICKENS FOR C/O "I'M SICK".
[2020-04-08 20:00] VITALS: BP 93/59
--- NOTE | 2020-04-08 20:00 | NUR ---
Patient wanting adjusted in bed, but refused to go on her side. Patient denies any nausea at this time, zofran effective. Patient has no complaint of pain at this time. Patient left with call light in reach.
[2020-04-09] VITALS (7 sets, daily range): BP systolic 90–123; BP diastolic 43–66
--- NOTE | 2020-04-09 03:54 | NUR ---
Patient awoke in pain, states its all over. Roxicodone given, will monitor and reassess.
--- NOTE | 2020-04-09 05:00 | NUR ---
Roxicodone effective for pain.
[2020-04-09 05:56] LABS: ALBUMIN 2.4 gm/dl (3.1-4.5); ALKALINE PHOSPHATASE 179 U/L (45-117); CHLORIDE 95 mmol/L (98-107); CREATININE 0.95 mg/dL (0.55-1.02); POTASSIUM 3.7 mmol/L (3.5-5.1); SGOT/AST 32 IU/L (3-35); SGPT/ALT 46 U/L (12-78); SODIUM 133 mmol/L (136-145); TOTAL PROTEIN 7.7 gm/dL (6.4-8.2)
[2020-04-09 05:57] LABS: BUN 37 mg/dl (7-24)
[2020-04-09 06:06] LABS: HEMATOCRIT 25.4 % (37.0-47.0); MEAN CELL VOLUME 101.6 fl (81.0-99.0); MEAN CORPUSCULAR HGB 32.8 pg (27.0-31.0); MEAN CORPUSCULAR HGB CONC 32.3 g/dl (33.0-37.0); MEAN PLATELET VOLUME 10.4 fl (9.6-12.3); PLATELET COUNT AUTOMATED 230 10*3/uL (130-400); RED CELL DISTRI WIDTH 15.2 % (0-14.5); WHITE BLOOD COUNT 16.1 10*3/uL (4.8-10.8)
[2020-04-09 06:22] LABS: PLATELET SUFFICIENCY NORMAL (NORMAL); TOTAL CELLS COUNTED 100 #CELLS
[2020-04-09 06:24] LABS: VACUOLATION OF NEUTROPHILS SLIGHT
--- NOTE | 2020-04-09 07:28 | NUR ---
Shift chart check completed.24 HR chart check completed.
[2020-04-09 07:58] LABS: ABG BASE EXCESS 7.2 mmol/L (-2.0-2.0); ARTERIAL BLOOD GAS PH 7.372 (7.35-7.45)
--- NOTE | 2020-04-09 08:08 | NUR ---
ON ASSESSMENT PATIENT ALERT AND ORIENTED, ABLE TO MAKE HER NEEDS KNOWN. REMAINS TRACH ON VENT. PEG INTACT WITH PULMOCARE AT 45/HR. STILL COMPLAINS OF RT LEG PAIN. CLAIMS ITS FROM "SCLERODERMA". SHE SAID WHEN SHE HAD PAIN AT HOME SHE WOULD TAKE "DEMEROL AND PHENERGAN" AT HOME. ON FURTHER QUESTIONING THOSE ARE "PILLS" BUT SHE WOULD "SOMETIMES GO TO THE DOCTOR AND GET A SHOT OF DEMEROL". SEE ALL APPROPRIATE INTERVENTIONS.
--- NOTE | 2020-04-09 09:39 | NUR ---
OXY IR FOR RT LEG PAIN ".
--- NOTE | 2020-04-09 10:00 | NUR ---
DR COPELAND HAS VISITED. MADE AWARE OF HER CONTINUED RT LEG PAIN. MEDS REVIEWED AND HE ENTERED ORDERS. WILL KEEP HIM AWARE IF STILL AN ISSUE.
--- NOTE | 2020-04-09 10:07 | NUR ---
ONE TIME DOSE DEMEROL 25MG IV GIVEN VERY SLOWLY.
--- NOTE | 2020-04-09 10:31 | NUR ---
EYES CLOSED, RESPIRATIONS EASY, FACE RELAXED SINCE EARLIER DEMEROL.
--- NOTE | 2020-04-09 10:32 | NUR ---
EARLIER OXY 1R IS EITHER HELPING OR MOST LIKELY SHE'S RESTING EASIER BECAUSE OF THE IV DEMEROL.
--- NOTE | 2020-04-09 11:59 | NUR ---
COMPLETE BATH/HAIRWASH. OUT OF BED TO CHAIR. TWO ASSIST BUT BEARS WEIGHT WELL.
--- NOTE | 2020-04-09 12:04 | NUR ---
PT DID SAY THAT THE "SHOT DID HELP, BUT BELIEVE IT OR NOT, NOW MY LEFT LEG HURTS". EXPLANATIONS THAT PAIN SHOT COULD HELP THAT ALSO. SHE LOOKS COMFORTABLE IN THE CHAIR, CALL LIGHT IN REACH. SHE'S WATCHING TV.
--- NOTE | 2020-04-09 12:59 | NUR ---
DR CASTILLO IN TO VISIT. HE DECREASED FIO2 TO 50%. MESSAGE SENT TO CARDIOPULMONARY.
--- NOTE | 2020-04-09 13:48 | NUR ---
BACK TO BED AFTER USING BSC FOR URINE/BM. ONCE IN BED, SAID "MY LEGS ARE REALLY HURTING". EXPLANATIONS THAT BEING ON THEM COULD BE CAUSING MUSCLE PAIN AND THAT SHE NEEDS TO TIGHTEN HER THIGHS AND BUTTOCKS WHEN IN BED. PT SAID "TELL THE DR I TAKE 50MG DEMEROL PILLS".
--- NOTE | 2020-04-09 13:52 | NUR ---
DR WEINSTEIN NOTIFIED OF PT'S CONTINUED LEG PAIN AND THAT EARLIER DEMEROL WAS EFFECTIVE FOR AWHILE ALTHOUGH PT SAID USUALLY TAKES 50MG. HE IS ENTERING ORDERS VIA COMPUTER.
--- NOTE | 2020-04-09 14:12 | NUR ---
DURAGESIC PATCH APPLIED RT UPPER ARM.
--- NOTE | 2020-04-09 15:35 | NUR ---
ZOFRAN ODT FOR NAUSEA, BUT NO EMESIS AND OXY IR FOR PAIN.
--- NOTE | 2020-04-09 16:30 | NUR ---
APPARENT RELIEF FROM ZOFRAN AND OYY IR. SHE'S SLEEPING WITH HER FACE RELAXED.
--- NOTE | 2020-04-09 17:33 | NUR ---
PT SLEPT FOR LONG INTERVAL. AWAKE, WATCHING TV.
--- NOTE | 2020-04-09 21:34 | NUR ---
PATIENT REQUESTING MEDICINE FOR C/O NAUSEA AND PAIN. MEDICATED WITH ZOFRAN AND OXYCODONE PER PRN ORDERS.
--- NOTE | 2020-04-09 22:00 | NUR ---
PATIENT RESTING QUIETLY. MEDICATION EFFECTIVE.
[2020-04-10] VITALS: BP 112/67
--- NOTE | 2020-04-10 03:30 | NUR ---
PATIENT C/O NAUSEA AND PAIN. MEDICATED WITH ZOFRAN AND OXYCODONE PER PRN ORDERS. WILL CONTINUE TO MONITOR.
[2020-04-10 04:00] VITALS: BP 102/65
[2020-04-10 05:42] LABS: ALBUMIN 2.4 gm/dl (3.1-4.5); BUN 31 mg/dl (7-24); CHLORIDE 97 mmol/L (98-107); POTASSIUM 3.9 mmol/L (3.5-5.1); SGOT/AST 30 IU/L (3-35); SGPT/ALT 48 U/L (12-78); SODIUM 134 mmol/L (136-145); TOTAL PROTEIN 7.8 gm/dL (6.4-8.2)
[2020-04-10 05:43] LABS: ALKALINE PHOSPHATASE 183 U/L (45-117)
[2020-04-10 05:49] LABS: BASO % 0.1 % (0.0-1.0); EOS # 0.1 10*3/uL (0.0-0.4); HEMATOCRIT 25.8 % (37.0-47.0); LYMPH # 0.6 10*3/uL (1.3-4.4); LYMPH % 4.6 % (27.0-41.0); MEAN CORPUSCULAR HGB 32.7 pg (27.0-31.0); MEAN CORPUSCULAR HGB CONC 31.4 g/dl (33.0-37.0); MEAN PLATELET VOLUME 10.2 fl (9.6-12.3); MONO # 0.9 10*3/uL (0.1-1.0); MONO % 6.5 % (3.0-9.0); NEUT # 11.8 10*3/uL (2.3-7.9); NEUT % 86.6 % (47.0-73.0); PLATELET COUNT AUTOMATED 253 10*3/uL (130-400); RED BLOOD COUNT 2.48 10*6/uL (4.10-5.10); RED CELL DISTRI WIDTH 15.2 % (0-14.5); WHITE BLOOD COUNT 13.6 10*3/uL (4.8-10.8)
--- NOTE | 2020-04-10 07:14 | NUR ---
Shift chart check completed.24 HR chart check completed.
[2020-04-10 08:00] VITALS: BP 110/60; BP 111/66
[2020-04-10 08:15] LABS: ABG BASE EXCESS 7.6 mmol/L (-2.0-2.0); ARTERIAL BLOOD GAS PH 7.353 (7.35-7.45)
--- NOTE | 2020-04-10 08:40 | NUR ---
ON ASSESSMENT PATIENT IS DROWSY BUT ORIENTED. COMPLAINS OF "PAIN" IN HER LEGS BUT WHEN FURTHER QUESTIONED SHE SAYS "YES" IT'S BETTER THAN THIS TIME YESTERDAY. REMAINS ON VENT, TRACH INTACT. SHE DOESN'T WANT TO GET OUT OF BED RIGHT NOW. HEP LOCK INTACT LEFT ARM. SEE ALL APPROPRIATE INTERVENTIONS.
--- NOTE | 2020-04-10 09:19 | NUR ---
OXY IR AND ZOFRAN FOR PAIN IN LEGS AND NAUSEA BUT NO EMESIS. SHE'S TALKING ON PHONE WITH HER .
--- NOTE | 2020-04-10 10:15 | NUR ---
EARLIER OXY IR AND ZOFRAN EFFECTIVE TO ALLOW HER TO PARTICIPATE IN GETTING UP TO BSC,THEN INTO THE CHAIR. SHE BEARS WEIGHT FAIRLY WELL, AND MOSTLY PIVOTS TO SIT. 100% FIO2 BEFORE AND AFTER ACTIVITY. SITTING IN CHAIR, ENCOURAGE HER TO MARCH HER LEGS FOR EXERCISE. CALL LIGHT IN REACH.
[2020-04-10 12:00] VITALS: BP 109/59
--- NOTE | 2020-04-10 13:05 | NUR ---
HAS REMAINED IN CHAIR WITH ENCOURAGEMENT. SHE HAS MENTIONED PAIN LESS TODAY THAN YESTERDAY. DR CASTILLO HAS VISITED. SHE ASKED HIM ABOUT PUREED DIET AND HE TOLD HER "NO".
--- NOTE | 2020-04-10 13:58 | NUR ---
BACK TO BED,AFTER USING BSC. USED WALKER FOR INCREASED STABILITY. CALL LIGHT IN REACH.
--- NOTE | 2020-04-10 15:58 | NUR ---
SPO2 100% ON 50% PT SEMI FOWLERS IN BED. FIO2 DECREASED TO 45%. SPO2 94%
[2020-04-10 16:00] VITALS: BP 109/59
--- NOTE | 2020-04-10 16:34 | NUR ---
RESTING MUCH EASIER WITH LESS VOICED COMPLAINTS OF PAIN THAN YESTERDAY. FIO2 HAS BEEN TITRATED BY RESPIRATORY TO 45%.
--- NOTE | 2020-04-10 17:30 | NUR ---
ANDIE CERVANTES [facility] IN TO SEE PATIENT. I ASKED ABOUT POSSIBLE NEED FOR A MIDLINE OR PICC FOR RETURN TO SKILLED NURSING AND SHE INDICATED THAT A PICC LINE WOULD MOST LIKELY BE NEEDED AND THAT DR ROSENBERG WILL ADDRESS THAT TOMORROW.
--- NOTE | 2020-04-10 18:56 | NUR ---
OXY IR FOR LEG PAIN.
--- NOTE | 2020-04-10 19:25 | NUR ---
PATIENT STATES OXY IR SEMIEFFECTIVE.
[2020-04-10 20:00] VITALS: BP 114/79
--- NOTE | 2020-04-10 21:33 | NUR ---
PATIENT C/O NAUSEA. MEDICATED WITH ZOFRAN PER PRN ORDER.
[2020-04-11] VITALS: BP 106/59
--- NOTE | 2020-04-11 02:54 | NUR ---
PATIENT C/O NAUSEA AND LEG PAIN. MEDICATED WITH ZOFRAN AND OXYXODONE PER PRN ORDERS.
[2020-04-11 04:00] VITALS: BP 98/62
--- NOTE | 2020-04-11 05:40 | NUR ---
Upon discharge recommend patient to follow up for wound care in outpatient setting continue current wound care orders at discharging facility.
[2020-04-11 05:54] LABS: BUN 28 mg/dl (7-24); CHLORIDE 96 mmol/L (98-107); CREATININE 0.75 mg/dL (0.55-1.02); POTASSIUM 3.9 mmol/L (3.5-5.1); SODIUM 133 mmol/L (136-145)
[2020-04-11 06:13] LABS: BASO % 0.3 % (0.0-1.0); EOS # 0.2 10*3/uL (0.0-0.4); EOS % 1.2 % (1.0-4.0); HEMATOCRIT 25.1 % (37.0-47.0); LYMPH # 0.6 10*3/uL (1.3-4.4); LYMPH % 4.3 % (27.0-41.0); MEAN CELL VOLUME 104.1 fl (81.0-99.0); MEAN CORPUSCULAR HGB 32.4 pg (27.0-31.0); MEAN CORPUSCULAR HGB CONC 31.1 g/dl (33.0-37.0); MEAN PLATELET VOLUME 10.3 fl (9.6-12.3); MONO # 0.9 10*3/uL (0.1-1.0); MONO % 6.6 % (3.0-9.0); NEUT # 11.1 10*3/uL (2.3-7.9); NEUT % 85.9 % (47.0-73.0); NUCLEATED RED BLOOD CELL 0.2 % (0.0-0.0); PLATELET COUNT AUTOMATED 255 10*3/uL (130-400); RED BLOOD COUNT 2.41 10*6/uL (4.10-5.10); RED CELL DISTRI WIDTH 15.2 % (0-14.5); WHITE BLOOD COUNT 12.9 10*3/uL (4.8-10.8)
--- NOTE | 2020-04-11 07:16 | NUR ---
Updated clinicals faxed to [facility] for review. 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
--- NOTE | 2020-04-11 07:41 | NUR ---
Shift chart check completed.
[2020-04-11 08:00] VITALS: BP 108/60
[2020-04-11 08:12] LABS: ABG BASE EXCESS 7.1 mmol/L (-2.0-2.0); ARTERIAL BLOOD GAS PH 7.373 (7.35-7.45)
--- NOTE | 2020-04-11 08:48 | NUR ---
PATIENT AAL. RESP THERAPY IN ROOM & DOING TRACH CARE. DR CASTILLO ROUNDED. PATIENT DOING WELL BUT UNABLE TO RETURN TO LONG TERM AT THIS TIME. LTAC WOULD BE OK. RN DISCUSSED WITH PATIENT LTAC.. PG TUBE REMAINS PATENT AND PRN ZOFRAN & GAS MEDICATION GIVEN. PATIENT CONTINUES TO C/O RT LOWER LEG DISCOMFORT. AGREED TO TUBIGRIPS & SCD'S.. NO REDNESS/SWELLING/EDEMA NOTED TO BLE. GOOD PULSES TO BOTH EXTREMITIES. PATIENT DOES C/O TENDERNESS TO RT CALF..COLOR PALE BUT WARM. A-FIB/FLUTTER RATE CONTROLLED. LEFT ACCUCATH REMAINS PATENT BUT PICC LINE WILL PROBABLY NEED PLACED..PATIENT TALKING TO VIA PHONE
--- NOTE | 2020-04-11 09:00 | NUR ---
Nausea improved since medicated..
--- NOTE | 2020-04-11 10:45 | NUR ---
Occupational Therapy evaluation completed on ICCU with full evaluation to follow. Recommend occupational therapy per plan of care and LTAC upon discharge. Thank you for this referral. Ratna Santiago OTR/L
--- NOTE | 2020-04-11 11:13 | NUR ---
Oxy-IR given for c/o leg pain after seen by Dr David.. VSS. Therapy to see her tomly
--- NOTE | 2020-04-11 11:24 | NUR ---
Received order for LTACH. Contacted both [facility] and [facility] for in network services with [employer]. Faxed to both facilities for review. Waiting on review/acceptance.
[2020-04-11 12:00] VITALS: BP 106/64
--- NOTE | 2020-04-11 12:06 | NUR ---
Up in chair with therapy - all lines remain secure..Patient still has pain in RLL after walking to chair... pain 4/10 and resting with eyes closed
--- NOTE | 2020-04-11 14:10 | NUR ---
BACK TO BED WITH 2 ASSIST & WALKER.. PT TOLERATED WELL BUT C/O LEG PAIN WITH WALKING
--- NOTE | 2020-04-11 14:19 | NUR ---
SPEECH PATHOLOGY Nursing screen completed. Patient is known to this dept. from multiple recent hospital admissions for respiratory failure and pneumonia. Patient is NPO and fed by G-tube. This dept. will be available for consult as needs arise. WALTER FREY MS[facility]-DATE NIGHT SITTER
--- NOTE | 2020-04-11 14:40 | NUR ---
Lani from [facility] stated this patient has been with them in the past and was at the [place] location since family lives in [place]. Notified Jennifer patient and family chose [facility] in [place]. Contacted [facility] and explained patients choice of LTACHs. [facility] has started precert for [employer]. Waiting on auth.
--- NOTE | 2020-04-11 15:00 | NUR ---
Spoke with Cierra at [facility] to let her know patient has been referred to [facility]. Asked about her hold days and the is concerned about her belongings at the facility. Cierra stated they would not be able to hold her bed technically, but the would take care of her belongings and always have a bed for her when she is able to return. she also stated that [facility] is capable of administering intermediate card tender IV ABX. Notified Grace PICKETT in ICCU
[2020-04-11 16:00] VITALS: BP 116/78
--- NOTE | 2020-04-11 19:46 | NUR ---
patient given oxyir for 10/10 right behind the knee pain and zofran for nausea.
[2020-04-11 20:00] VITALS: BP 120/64
--- NOTE | 2020-04-11 21:15 | NUR ---
patient given mylincon for nausea and indigestion per pt request
[2020-04-12] VITALS (8 sets, daily range): BP systolic 109–136; BP diastolic 53–88
[2020-04-12 05:50] LABS: ALBUMIN 2.4 gm/dl (3.1-4.5); ALKALINE PHOSPHATASE 171 U/L (45-117); BUN 23 mg/dl (7-24); CHLORIDE 98 mmol/L (98-107); CREATININE 0.68 mg/dL (0.55-1.02); POTASSIUM 4.3 mmol/L (3.5-5.1); SGOT/AST 22 IU/L (3-35); SGPT/ALT 40 U/L (12-78); SODIUM 132 mmol/L (136-145); TOTAL PROTEIN 7.5 gm/dL (6.4-8.2)
[2020-04-12 05:58] LABS: HEMATOCRIT 25.2 % (37.0-47.0); MEAN CELL VOLUME 103.7 fl (81.0-99.0); MEAN CORPUSCULAR HGB 32.5 pg (27.0-31.0); MEAN CORPUSCULAR HGB CONC 31.3 g/dl (33.0-37.0); MEAN PLATELET VOLUME 10.2 fl (9.6-12.3); NUCLEATED RED BLOOD CELL 0.2 % (0.0-0.0); PLATELET COUNT AUTOMATED 269 10*3/uL (130-400); RED BLOOD COUNT 2.43 10*6/uL (4.10-5.10); RED CELL DISTRI WIDTH 15.2 % (0-14.5); WHITE BLOOD COUNT 10.7 10*3/uL (4.8-10.8)
--- NOTE | 2020-04-12 07:06 | NUR ---
Shift chart check completed.24 HR chart check completed.
[2020-04-12 07:24] LABS: ATYPICAL LYMPHS 1 % (0-0); POLYCHROMASIA SLIGHT; TOTAL CELLS COUNTED 100 #CELLS
[2020-04-12 07:25] LABS: PLATELET SUFFICIENCY NORMAL (NORMAL)
--- NOTE | 2020-04-12 07:38 | NUR ---
FIO2 DECREASED FROM 45% TO 40%. HR 96 SPO2 96%.
--- NOTE | 2020-04-12 07:55 | NUR ---
ON ASSESSMENT PATIENT ALERT AND ORIENTED, WATCHING TV. SHE'S NPO FOR KINGSLEY THIS MORNING. ALSO HAS PICC PLACEMENT PLANNED. REMAINS TRACHED, ON VENTILATOR. RESPIRATORY DECREASED FIO2 TO 40% AND IS GOING TO DO A GAS ON THAT LATER. HER IV IS INTACT LEFT ARM. SCD'S IN PLACE. SEE ALL APPROPRIATE INTERVENTIONS.
--- NOTE | 2020-04-12 08:43 | NUR ---
INCONTINENT OF URINE PLUS SHE VOIDED/BM ON BEDPAN. COMPLETE LINEN CHANGE AND DONNY CARE. SKIN INTACT.
--- NOTE | 2020-04-12 09:00 | NUR ---
PHYSICAL THERAPY Patient seen this am 1:1 for therapy visit and was resting supine in bed upon therapist arrival. Patient identified by name / and was joined by OT res habilitation assistant who was present for observation only this session. Patient presented with VENT / TRACH and recorded all vital signs WFL's throughout entire treatment. Patient did voice feeling tired / weak this morning an per discussion with ICCU nurse, patient is scheduled for several medical test this date. Patient reports feeling too weak to attempt EOB sit this morning, however agreed to and completed supine B LE therex, all planes, x 15 reps each to increase LE strength / improve ROM. Patient tolerated all treatment without c/o and remained in bed with call light. Will continue per POC as tolerated, total treatment time 14 minutes. Paul Pimentel, AWNING HANGER
[2020-04-12 09:01] LABS: ABG BASE EXCESS 6.5 mmol/L (-2.0-2.0); ARTERIAL BLOOD GAS PH 7.405 (7.35-7.45)
--- NOTE | 2020-04-12 09:27 | NUR ---
DR CASTILLO HAS VISITED. PT HAS PARTICIPATED WITH THERAPY. SHE'S RESTING QUIETLY AT THIS TIME.
--- NOTE | 2020-04-12 09:55 | NUR ---
Pt was identified by wristband & . Pt was in functional limits throughout session. O2 in place. Pt performed "towel exercises" after demonstration to enhance tolerance for simple ADLs with 2 rest periods. Pt fatigued & not "able to go on". Session with 8 minutes only. All needs within reach. Continue with POC. Ros TEIXEIRA/Katie
--- NOTE | 2020-04-12 10:56 | NUR ---
ZOFRAN FOR NAUSEA BUT NO EMESIS. REMAINS NPO FOR KINGSLEY.
--- NOTE | 2020-04-12 11:08 | NUR ---
PHARMACY NOTIFIED OF CRITICAL VALUE VANCO TROUGH 24.5. THEY ARE GOING TO RE-DOSE THE VANCOMYCIN.
--- NOTE | 2020-04-12 11:16 | NUR ---
IS RESTING QUIETLY WITH HER EYES CLOSED, NO EMESIS OR COMPLAINTS SINCE EARLIER JUAN.
--- NOTE | 2020-04-12 11:50 | NUR ---
OR CREW,DR DE LA TORRE, AND DIRECTOR OF CURRICULUM AND INSTRUCTION HERE DOING KINGSLEY.
--- NOTE | 2020-04-12 11:52 | NUR ---
[facility]GAR-PENDING SALE TO [facility] CALLED IN FOR AN UPDATE. GERONTOLOGICAL NURSE PRACTITIONER PROVIDED HER WITH A CLINICAL UPDATE.
--- NOTE | 2020-04-12 12:04 | NUR ---
KINGSLEY COMPLETE, NO VEGETATION. GRICEL CALL FROM SURGERY HERE PLACING PICC LINE. PT STILL DROWSY FROM PROPOFOL.
--- NOTE | 2020-04-12 13:06 | NUR ---
Pt was seen for OT approx 8 minutes as pt said..."I'm not feeling well". Pt agreed to "simple towel exercises" with rest breaks to enhance tolerance for simple ADls. With cues pt performed exercises up to 10 reps. All needs within reach. Continue with OT POC. Ros CORDOVA
--- NOTE | 2020-04-12 13:52 | NUR ---
DR ROSENBERG PHONED AND VERIFIED THAT DEFINITELY MUST BE A PICC, NOT A MIDLINE CATHETER. GRICEL FERREIRA HAS TALKED WITH DR DOMINGUEZ FROM INTERVENTIONAL RADIOLOGY AND STILL ATTEMPTING TO REPOSITION THE PICC LINE.
--- NOTE | 2020-04-12 14:28 | NUR ---
[facility] denied patient for LATCH; [facility] at [address] Tian.
--- NOTE | 2020-04-12 14:30 | NUR ---
PT TO SURGERY VIA BED FOR FLUORO ASSISTED PICC PLACEMENT.
--- NOTE | 2020-04-12 14:35 | NUR ---
PATIENT BROUGHT INTO OR RM 1 FOR PICC LINE REPOSITIONING UNDER FLURO. WILL AWAIT DR DOMINGUEZ.
--- NOTE | 2020-04-12 14:50 | NUR ---
PICC LINE WAS READJUSTED UNDER FLURO. NO OTHER PROCEDURES DONE. PATIENT RETURNED TO ICCU. PATIENT STABLE WHILE IN OR WITH RESPIRATORY AT BEDSIDE.
--- NOTE | 2020-04-12 15:04 | NUR ---
HAS RETURNED FROM OR WITH RT PICC IN PLACE. HAS CALLED IN AND UPDATED.
--- NOTE | 2020-04-12 15:13 | NUR ---
OXY IR FOR LEG PAIN. TURNED, DONNY CARE.VOIDED ON BEDPAN. POSITIONED FOR COMFORT. PT HAS HAD A VERY BUSY DAY AND DECLINES GETTING UP IN CHAIR AT THIS TIME.
--- NOTE | 2020-04-12 16:10 | NUR ---
EYES CLOSED, FACE RELAXED. EARLIER OXY IR APPEARS EFFECTIVE.
--- NOTE | 2020-04-12 18:44 | NUR ---
ZOFRAN FOR NAUSEA BUT NO EMESIS.
--- NOTE | 2020-04-12 18:50 | NUR ---
SOME OOZING FROM UNDER RT PICC LINE DRESSING. REINFORCED IT WITH GAUZE/MIMI. WILL NEED CHANGED TOMORROW.
--- NOTE | 2020-04-12 18:55 | NUR ---
Pt decreased FiO2 from 40% to 35%. SpO2 93%. Pt said she did not need suctioned at the moment. HME was changed. Trach care was done. No comps.
--- NOTE | 2020-04-12 19:16 | NUR ---
RESTING WITH HER EYES CLOSED SINCE EARLIER ZOFRAN. RESPIRATORY HAS TITRATED FIO2 TO 35%.
--- NOTE | 2020-04-12 20:05 | NUR ---
1930 RESTING IN BED WITH HOB ELEVATED. SIDE RAILS UP X'S 2. CALL LIGHT IN REACH. TRACH SECURE TO VENT. PULSE OX 97% ON 35% FIO2 VIA VENT. OPENS EYES TO CARE. NO C/O'S PAIN OR DISCOMFORT VOICED AT THIS TIME. PICC LINE INTACT JIMENA. TF MAINTAINED VIA PEG TUBE. NO DISTRESS NOTED.
--- NOTE | 2020-04-12 21:37 | NUR ---
OXY IR GIVEN PER REQUEST FOR PAIN AND RESTORIL GIVEN FOR SLEEP. WILL MONITOR.
--- NOTE | 2020-04-12 21:50 | NUR ---
Pt increased FiO2 from 35% to 40%. SpO2 was in the range of 87%-88%.
--- NOTE | 2020-04-12 21:53 | NUR ---
PT REFUSED BATH AT PRESENT TIME.
--- NOTE | 2020-04-12 22:37 | NUR ---
EARLIER OXY AND RESTORIL EFFECTIVE. RESTING IN BED WITH EYES CLOSED. APPEARS TO BE SLEEPING.
[2020-04-13] VITALS: BP 98/56
--- NOTE | 2020-04-13 00:15 | NUR ---
REMAINS SLEEPING WITHOUT DISTRESS. PULSE OX 95% ON 40% FIO2 VIA VENT.
[2020-04-13 04:00] VITALS: BP 102/52
--- NOTE | 2020-04-13 04:54 | NUR ---
OXY IR FOR C/O'S PAIN R LEG. RATES PAIN AN "8". INCONTINENT OF LARGE AMOUNT URINE. ADULT DIAPER CHANGED AND DONNY CARE DONE. REPOSITIONED. WILL MONITOR.
--- NOTE | 2020-04-13 05:54 | NUR ---
EARLIER OXY EFFECTIVE. APPEARS TO BE SLEEPING.
[2020-04-13 06:09] LABS: BUN 17 mg/dl (7-24); CHLORIDE 99 mmol/L (98-107); CREATININE 0.67 mg/dL (0.55-1.02); SODIUM 136 mmol/L (136-145)
--- NOTE | 2020-04-13 06:09 | NUR ---
TRACH REMAINS SECURE TO VENT. PULSE OX 94% ON 40% FIO2. PICC LINE INTACT JIMENA. NO DISTRESS NOTED. CONDITION GUARDED.
[2020-04-13 08:00] VITALS: BP 113/62
--- NOTE | 2020-04-13 08:11 | NUR ---
Awakened for VS and ABG draw. Listless,VSS . No c/o.
[2020-04-13 08:17] LABS: ABG BASE EXCESS 8.1 mmol/L (-2.0-2.0); ARTERIAL BLOOD GAS PH 7.432 (7.35-7.45)
--- NOTE | 2020-04-13 10:12 | NUR ---
Resting quietly eyes closed. Spouse called in and update was given. Dr. Stewart in to evaulate. Dr. Mary called in and spoke w/ Dr. Bass as to continuation of abx on discharge.
--- NOTE | 2020-04-13 10:35 | NUR ---
PHYSICAL THERAPY Patient seen this am 1;1 for therapy visit and was resting supine in bed upon therapist arrival. Patient identified by name / and per discussion with [facility] Nurse was cleared to work with patient this morning. OT day care assistant was also present this session for observation only as patient presented with IV treatment, VENT/TRACH and recorded resting SpO2 94%, HR 89 bpm. Patient transfers supine to sit EOB with MAX A, tolerating static EOB sit x 10 minutes, CGA x 1. Patient SpO2 after sitting up 94%, HR slight increase 96 bpm. Patient demonstrated several episodes of "anxious" breathing and needed several v/c's to remain calm. Nurse arrived once to suction / clear Trach tube as patient completed several seated B LE therex, all planes, 2 x 5 reps each to increase LE strength. Patient returned to supine in bed, MAX A x 2 and reamined with call light, bed alarm activated for safety. Will continue per POC as tolerated, total treatment time 18 minutes. Paul Pimentel, MILL TENDER
[2020-04-13 11:40] VITALS: BP 136/68
[2020-04-13 12:00] VITALS: BP 140/75
--- NOTE | 2020-04-13 12:17 | NUR ---
1140 C/O CHEST PRESSURE. nTG SL GIVEN X1 . dENIES NEED FOR SECOND DOSE states helped . Requetsed pain med 1150 Oxy ir was given via PEG tube. After turning to side and using bed perez. pt. stated that she couldn't breathe and chest was hurting again. Repositioned, suctioned for moderate thin mucous. Dr. Bass here and in to evaulate. Pt. expressed pain at lower sternum, reproducable. Belched several times, when asked if she would like a mylicon , stated that she was not belching ,just trying to get her breath. SAT 95% HR 84. normotensive.
--- NOTE | 2020-04-13 12:23 | NUR ---
Dr. David in to aggie.
--- NOTE | 2020-04-13 12:47 | NUR ---
Pt was seen with OT x 19 minutes with [facility] present beginning with supine to sit at EOB with Max A. Sitting at EOB approx 10 minutes requiring CGA. Pt became very fatigued & sit to supine was Max A x2. 88 heart rate & 94% O2. Call light within reach. Continue with OT POC. Ros TEIXEIRA/Katie
[2020-04-13] MEDS ORDERED: CITALOPRAM20 MG PEG (13:58)
[2020-04-13] MEDS ORDERED: VITAMIN C500 M4 PO (13:58)
[2020-04-13] MEDS ORDERED: PHENYTOIN100 MG/41 PEG (13:58)
[2020-04-13] MEDS ORDERED: Lanoxin PEG (13:58)
[2020-04-13] MEDS ORDERED: VANCOCIN1000 MG/25 IV (14:00)
[2020-04-13] MEDS ORDERED: MERREM IV1 GM IV (14:00)
[2020-04-13] MEDS ORDERED: ZINC SULFATE220 MG PO (14:00)
--- NOTE | 2020-04-13 14:16 | NUR ---
Patient approved for [facility] after Peer to Peer. Faxed updated clinicals to [facility] location. Nurse to Nurse report is [phone].
--- NOTE | 2020-04-13 14:42 | NUR ---
Patient is going to [facility] in [place] ([facility] 6th floor) via [place] at 3:30 pm. Faxed discharge information to facility, notified marie Garibay, notified patients and notified wardrobe specialist/[facility] nursing.
--- NOTE | 2020-04-13 15:21 | NUR ---
1410 Medicated for anxiety , pain, nausea and indigestion. These meds were effective. Dressing was changed to PICC JIMENA, site is asymptomatic. Pending transport to [facility] in [facility].
--- NOTE | 2020-04-13 15:25 | NUR ---
Attempt to reach Ty ( ) for transfer notification , met w/ ans machine. No message left.
--- NOTE | 2020-04-13 15:43 | NUR ---
Attempt to call report , met w/ RN is on break.. Direct line left for call back.
[2020-04-13 16:00] VITALS: BP 134/84
--- NOTE | 2020-04-13 16:01 | NUR ---
Report given to Violetta at [facility] / [place]. [phone]. [place] here for transport.
--- NOTE | 2020-04-13 16:18 | NUR ---
[facility] here . transported to [facility]. Spouse called in and is aware of transfer.
--- NOTE | 2020-04-14 07:54 | NUR ---
PHYSICAL THERAPY CO-SIGN I approve of the Physical Therapy notes written above. Amirah Tran PT
== END 2020-04-13 16:18 | DRG 870 ==
LOC: ED 18:49 → ICCU 23:54 → 4E 23:54 → EDHOLD 23:54 → 4E 04-06 07:11 → ICCU 04-06 21:25
PROVIDERS: Emergency Medicine; Internal Medicine; Internal Medicine Critical Care Medicine; Student in an Organized Health Care Education/Training Program; ADMIT Family Medicine
PROC: 5A1955Z Respiratory Ventilation, Greater than 96 Consecutive Hours (ICD-10-PCS; principal; 2020-04-05)
PROC: 06HM33Z Insertion of Infusion Device into Right Femoral Vein, Percutaneous Approach (ICD-10-PCS; 2020-04-05)
PROC: 0B9B8ZZ Drainage of Left Lower Lobe Bronchus, Via Natural or Artificial Opening Endoscopic (ICD-10-PCS; 2020-04-07)
PROC: 0B948ZZ Drainage of Right Upper Lobe Bronchus, Via Natural or Artificial Opening Endoscopic (ICD-10-PCS; 2020-04-07)
PROC: 0B988ZZ Drainage of Left Upper Lobe Bronchus, Via Natural or Artificial Opening Endoscopic (ICD-10-PCS; 2020-04-07)
PROC: 0B958ZZ Drainage of Right Middle Lobe Bronchus, Via Natural or Artificial Opening Endoscopic (ICD-10-PCS; 2020-04-07)
PROC: 0B918ZZ Drainage of Trachea, Via Natural or Artificial Opening Endoscopic (ICD-10-PCS; 2020-04-07)
PROC: 0B968ZZ Drainage of Right Lower Lobe Bronchus, Via Natural or Artificial Opening Endoscopic (ICD-10-PCS; 2020-04-07)
PROC: B543ZZA Ultrasonography of Right Jugular Veins, Guidance (ICD-10-PCS; 2020-04-12)
PROC: 05HM33Z Insertion of Infusion Device into Right Internal Jugular Vein, Percutaneous Approach (ICD-10-PCS; 2020-04-12)
PROC: B24BZZ4 Ultrasonography of Heart with Aorta, Transesophageal (ICD-10-PCS; 2020-04-12)
DX: A41.02 Sepsis due to Methicillin resistant Staphylococcus aureus (principal); N17.0 Acute kidney failure with tubular necrosis; G93.41 Metabolic encephalopathy; J15.212 Pneumonia due to Methicillin resistant Staphylococcus aureus; J96.21 Acute and chronic respiratory failure with hypoxia; I26.99 Other pulmonary embolism without acute cor pulmonale; E87.2 Acidosis; I50.22 Chronic systolic (congestive) heart failure; Z99.11 Dependence on respirator [ventilator] status; E87.1 Hypo-osmolality and hyponatremia; I13.0 Hypertensive heart and chronic kidney disease with heart failure and stage 1 through stage 4 chronic kidney disease, or unspecified chronic kidney disease; J44.0 Chronic obstructive pulmonary disease with (acute) lower respiratory infection; I48.21 Permanent atrial fibrillation; E44.0 Moderate protein-calorie malnutrition; J95.851 Ventilator associated pneumonia; J96.12 Chronic respiratory failure with hypercapnia; R65.20 Severe sepsis without septic shock; E66.9 Obesity, unspecified; I27.20 Pulmonary hypertension, unspecified; M34.1 CR(E)ST syndrome; J20.9 Acute bronchitis, unspecified; F41.9 Anxiety disorder, unspecified; I25.10 Atherosclerotic heart disease of native coronary artery without angina pectoris; N18.3 Chronic kidney disease, stage 3 (moderate); F32.9 Major depressive disorder, single episode, unspecified; E03.9 Hypothyroidism, unspecified; E87.8 Other disorders of electrolyte and fluid balance, not elsewhere classified; R73.9 Hyperglycemia, unspecified; K21.9 Gastro-esophageal reflux disease without esophagitis; E83.41 Hypermagnesemia; M79.7 Fibromyalgia; E87.6 Hypokalemia; R16.0 Hepatomegaly, not elsewhere classified; D50.9 Iron deficiency anemia, unspecified; F41.1 Generalized anxiety disorder; R82.71 Bacteriuria; M34.9 Systemic sclerosis, unspecified; R13.12 Dysphagia, oropharyngeal phase; J98.09 Other diseases of bronchus, not elsewhere classified; B96.20 Unspecified Escherichia coli [E. coli] as the cause of diseases classified elsewhere; I08.1 Rheumatic disorders of both mitral and tricuspid valves; Y83.8 Other surgical procedures as the cause of abnormal reaction of the patient, or of later complication, without mention of misadventure at the time of the procedure; Y82.8 Other medical devices associated with adverse incidents; Z93.0 Tracheostomy status; Z20.828 Contact with and (suspected) exposure to other viral communicable diseases; Z74.01 Bed confinement status; Z79.899 Other long term (current) drug therapy; Z93.1 Gastrostomy status; Z79.01 Long term (current) use of anticoagulants; Z88.5 Allergy status to narcotic agent; Z88.8 Allergy status to other drugs, medicaments and biological substances; Z68.29 Body mass index [BMI] 29.0-29.9, adult